=== PATIENT | female | born 1950 | race Caucasian/White ===

== ENCOUNTER → 2018-05-16 11:05 | Outpatient (CLI) | payer OTHER, SELFPAY ==
--- NOTE | 2018-05-16 | DI.RAD.S_ITS ---
PROCEDURE: XR CHEST 2V INDICATIONS: BRONCHITIS TECHNIQUE: 2 views of the chest were acquired. COMPARISON: None. FINDINGS: Surgical changes and devices: None. Lungs and pleura: No pleural effusions or pneumothorax. Lungs are clear. Mediastinum: Mediastinal contours are normal. Heart size is normal. Bones and chest wall: There are multiple sclerotic foci identified within the proximal shaft of the right humerus. No priors are available for comparison. Soft tissues appear unremarkable. IMPRESSION: 1. No acute pulmonary process. 2. Multiple sclerotic foci within the right humeral shaft, incompletely visualized. Recommend humeral x-ray for further evaluation. Dictated by: Ashley Noriega M.D. on 05/16/2018 at 11:58 Approved by: Ashley Noriega M.D. on 05/16/2018 at 12:00
== END ==
PROVIDERS: Visit Provider Student in an Organized Health Care Education/Training Program
DX: J20.9 Acute bronchitis, unspecified (principal)
CPT/HCPCS: 71046

== ENCOUNTER → 2018-10-10 10:54 | Outpatient (CLI) | payer OTHER, SELFPAY ==
--- NOTE | 2018-10-10 | DI.RAD.S_ITS ---
PROCEDURE: XR ANKLE LT MIN 3V INDICATIONS: pain in left ankle TECHNIQUE: 3 views of the ankle were acquired. COMPARISON: None. FINDINGS: Bones: No fractures or dislocations. Ankle mortise is normally aligned. No suspicious bony lesions. Plantar fascia insertion spurring. 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 Soft tissues: No tibiotalar joint effusion. Achilles tendon appears normal. IMPRESSION: No acute trauma found. Source of ankle pain not identified. Osteoarthritic change as discussed center of the navicular bone partially visualized. Dictated by: Abrahan Rios M.D. on 10/10/2018 at 11:42 Approved by: Abrahan Rios M.D. on 10/10/2018 at 11:43
== END ==
PROVIDERS: Visit Provider Student in an Organized Health Care Education/Training Program
DX: M25.572 Pain in left ankle and joints of left foot (principal); M19.072 Primary osteoarthritis, left ankle and foot; G89.29 Other chronic pain
CPT/HCPCS: 73610

== ENCOUNTER → 2019-02-17 16:09 | Outpatient (CLI) | payer OTHER, SELFPAY ==
--- NOTE | 2019-02-17 | DI.MG.S_ITS ---
BILATERAL DIGITAL SCREENING MAMMOGRAM 3D/2D WITH CAD: 02/17/2019 CLINICAL: Routine screening. Family history of breast cancer. Comparison is made to exams dated: 06/05/2013 mammogram, 05/25/2015 mammogram, and 08/05/2017 mammogram - [facility]. The tissue of both breasts is heterogeneously dense. This may lower the sensitivity of mammography. Current study was also evaluated with a Computer Aided Detection (CAD) system. There is an asymmetry in the left breast posterior depth lateral region seen on the craniocaudal view only. No other significant masses, calcifications, or other findings are seen in either breast. IMPRESSION: INCOMPLETE: NEEDS ADDITIONAL IMAGING EVALUATION The asymmetry in the left breast is indeterminate. Additional views with possible ultrasound are recommended. This exam was interpreted at Station ID: [id number]. NOTE: For mammograms, a report in lay terms will be sent to the patient. Approximately 15% of breast malignancies will not be visualized mammographically. In the management of a palpable breast mass, a negative mammogram must not discourage biopsy of a clinically suspicious lesion. Electronically Signed By: Mony stoner/sintia:02/17/2019 16:53:45 letter sent: Additional Imaging Needed ACR BI-RADS Category 0: Incomplete [id number]
== END ==
PROVIDERS: Visit Provider Student in an Organized Health Care Education/Training Program
DX: Z12.31 Encounter for screening mammogram for malignant neoplasm of breast (principal); Z80.3 Family history of malignant neoplasm of breast
CPT/HCPCS: 77063; 77067

== ENCOUNTER → 2019-03-11 14:01 | Outpatient (CLI) | payer OTHER, SELFPAY ==
--- NOTE | 2019-03-11 | DI.MG.S_ITS ---
UNILATERAL LEFT DIGITAL DIAGNOSTIC MAMMOGRAM 3D/2D WITH ADDITIONAL VIEWS: 03/11/2019 CLINICAL: Additional evaluation requested from prior study. Comparison is made to exams dated: 02/17/2019 mammogram - [facility], 08/05/2017 mammogram, and 05/25/2015 mammogram - [facility]. The tissue of left breast is heterogeneously dense. This may lower the sensitivity of mammography. The previously described asymmetry in the posterior lateral left breast appears to correlate with a 0.4 cm oval equal density focal asymmetry in the left breast at 5 o'clock posterior depth. There is suggestion of a central fatty hilum. No other significant masses or calcifications are seen in the breast. IMPRESSION: INCOMPLETE: NEEDS ADDITIONAL IMAGING EVALUATION The 0.4 cm oval equal density focal asymmetry in the left breast resembles a lymph node but remains indeterminate. Further evaluation by sonogram is recommended which is scheduled to immediately follow this examination. This exam was interpreted at Station ID: [id number]. NOTE: For mammograms, a report in lay terms will be sent to the patient. Approximately 15% of breast malignancies will not be visualized mammographically. In the management of a palpable breast mass, a negative mammogram must not discourage biopsy of a clinically suspicious lesion. Electronically Signed By: Arsh Jovel M.D. aty/:03/11/2019 14:36:33 ACR BI-RADS Category 0: Incomplete [id number]
--- NOTE | 2019-03-11 | DI.US.S_ITS ---
ULTRASOUND OF LEFT BREAST AND AXILLA: 03/11/2019 CLINICAL: Patient returns today to evaluate a density in the left breast. Comparison is made to exams dated: 03/11/2019 mammogram, 02/17/2019 mammogram - [facility], 08/05/2017 mammogram, 05/25/2015 mammogram, and 06/05/2013 mammogram - [facility]. Color flow and real-time ultrasound of the left breast axilla were performed. Meade scale images of the real-time examination were reviewed. There is a 0.3 cm x 0.2 cm x 0.4 cm oval mass in the left breast at 4 o'clock middle depth 5 cm from the nipple. This oval mass is hypoechoic with possible fatty hilum and no posterior acoustic shadowing or enhancement. This likely correlates with mammography findings. Color flow imaging demonstrates that there is no vascularity present. No significant abnormalities were seen sonographically in the left axilla. IMPRESSION: PROBABLY BENIGN The 0.3 cm x 0.2 cm x 0.4 cm oval mass in the left breast has a differential diagnosis of a complicated cyst or a lymph node and is probably benign. A follow-up left mammogram and a left breast ultrasound in 6 months is recommended to demonstrate stability. This exam was interpreted at Station ID: [id number]. Electronically Signed By: Arsh Jovel M.D. at/:03/11/2019 15:21:33 letter sent: Followup Recommended Ultrasound BI-RADS: 3 Probably benign
== END ==
PROVIDERS: Family Provider Student in an Organized Health Care Education/Training Program; PCP Student in an Organized Health Care Education/Training Program; Visit Provider Student in an Organized Health Care Education/Training Program
DX: R92.8 Other abnormal and inconclusive findings on diagnostic imaging of breast (principal); N63.23 Unspecified lump in the left breast, lower outer quadrant
CPT/HCPCS: 76642; 77065; G0279

== ENCOUNTER → 2019-10-15 08:00 | Outpatient (CLI) | payer OTHER, SELFPAY ==
--- NOTE | 2019-10-15 08:02 | DI.US.S_ITS ---
LIMITED ULTRASOUND OF LEFT BREAST AND AXILLA: 10/15/2019 CLINICAL: 6 month follow-up of cysts. Comparison is made to exams dated: 10/15/2019 mammogram, 03/11/2019 ultrasound, 03/11/2019 mammogram, 02/17/2019 mammogram - [facility], 08/05/2017 mammogram, and 05/25/2015 mammogram - [facility]. Color flow and real-time ultrasound of the left breast 3-4 o'clock, and axilla regions were performed on the areas of interest. There is a 0.4 cm x 0.3 cm x 0.4 cm oval mass with an indistinct and circumscribed margin in the left breast at 3 o'clock middle depth. This oval mass is hypoechoic. This abnormality is slightly increased in size and correlates with mammography findings. There is suggestion of a mildly dilated adjacent duct. Color flow imaging demonstrates that there is no vascularity present. IMPRESSION: SUSPICIOUS OF MALIGNANCY The 0.4 cm x 0.3 cm x 0.4 cm oval mass in the left breast is suspicious of malignancy. An ultrasound guided biopsy is recommended. The findings were discussed with the patient at the conclusion of the study by Dr. Lee. This exam was interpreted at Station ID: [id number]. Electronically Signed By: Eugene valdez/:10/15/2019 09:45:30 letter sent: Biopsy Required Ultrasound BI-RADS: 4 Suspicious for malignancy
--- NOTE | 2019-10-15 08:02 | DI.MG.S_ITS ---
UNILATERAL LEFT DIGITAL DIAGNOSTIC MAMMOGRAM 3D/2D SHORT-TERM FOLLOW-UP: 10/15/2019 CLINICAL: Short follow up. Comparison is made to exams dated: 03/11/2019 mammogram, 02/17/2019 mammogram - [facility], 08/05/2017 mammogram, and 05/25/2015 mammogram - [facility]. The tissue of left breast is heterogeneously dense. This may lower the sensitivity of mammography. There is an oval equal density mass with a circumscribed margin in the left breast at 4 o'clock posterior depth. This is not significantly changed. No other significant masses or calcifications are seen in the breast. IMPRESSION: INCOMPLETE: NEEDS ADDITIONAL IMAGING EVALUATION The oval equal density mass in the left breast is indeterminate. An ultrasound is recommended. This exam was interpreted at Station ID: [id number]. NOTE: For mammograms, a report in lay terms will be sent to the patient. Approximately 15% of breast malignancies will not be visualized mammographically. In the management of a palpable breast mass, a negative mammogram must not discourage biopsy of a clinically suspicious lesion. Electronically Signed By: Eugene valdez/sintia:10/15/2019 08:39:04 ACR BI-RADS Category 0: Incomplete 3340F
== END ==
PROVIDERS: Family Provider Student in an Organized Health Care Education/Training Program; PCP Nurse Practitioner; Referring Provider Nurse Practitioner; Visit Provider Nurse Practitioner
DX: R92.8 Other abnormal and inconclusive findings on diagnostic imaging of breast (principal); N63.23 Unspecified lump in the left breast, lower outer quadrant
CPT/HCPCS: 76642; 77065; G0279

== ENCOUNTER → 2019-10-28 13:56 | Outpatient (CLI) | payer OTHER, SELFPAY ==
--- NOTE | 2019-10-28 | DI.MG.S_ITS ---
UNILATERAL LEFT DIGITAL DIAGNOSTIC MAMMOGRAM POST-NEEDLE BIOPSY: 10/28/2019 CLINICAL: Post left breast ultrasound biopsy clip placement imaging. Comparison is made to exams dated: 10/15/2019 ultrasound, 10/15/2019 mammogram, and 03/11/2019 [facility]. The tissue of left breast is heterogeneously dense. This may lower the sensitivity of mammography. There is a marker clip in the appropriate position in the left breast at 3 o'clock middle depth. This marker clip placement is at the biopsy site. IMPRESSION: POST PROCEDURE MAMMOGRAM FOR MARKER PLACEMENT There was a successful marker clip placement in the left breast middle depth. This exam was interpreted at Station ID: [id number]. NOTE: For mammograms, a report in lay terms will be sent to the patient. Approximately 15% of breast malignancies will not be visualized mammographically. In the management of a palpable breast mass, a negative mammogram must not discourage biopsy of a clinically suspicious lesion. Electronically Signed By: Ramiro eli/:10/28/2019 16:12:20 ACR BI-RADS Category Post-procedure mammogram for marker placement
--- NOTE | 2019-10-28 | PATH_ITS ---
[facility] Accession Number: [id number] . 01 Material submitted: . breast - LEFT BREAST MASS 300 5CMFN . 01 Clinical history: . BRUNA . 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 Negative for atypia, carcinoma in situ, and malignancy. MRV 10/30/2019 1925 Local . 01 Comment: Clinical and radiographic correlation is necesary. . 01 Electronically signed: . Lorraine Beckett MD, Pathologist NPI- [id number] . 01 Gross description: . Received in formalin and labeled with LT breast are six pieces of dominguez adipose tissue measuring 1.1 x 0.3 x 0.3 to 0.6 x 0.5 x 0.3 cm. The tissue is entirely submitted in cassettes A1 and A2, with three pieces per cassette. Fixation time on bottle is listed at 3:00. The fixation duration should be approximately 19 hours. (BJ:[id number]) /MRV 10/29/2019 0950 Local . 01 Microscopic: . CK5/6 and estrogen receptor are performed on block A1 in order to evaluate areas of proliferation, with appropriately staining external controls. The areas of proliferation demonstrate mosaic pattern of immunoreactivity for estrogen receptor and no loss of CK5/6, in support of the diagnosis. Deeper H/E levels are examined. . * This test was developed and its performance characteristics determined by [facility]. It has not been cleared or approved by the U.S. Food and Drug Administration. The FDA has determined that such clearance or approval is not necessary. This test is used for clinical purposes. It should not be regarded as investigational or for research. . 01 Pathologist provided ICD-10: D24.2 . 01 CPT . O79298, O15422, 593142 Performed at: 01 [facility] [address], [place], [place] [id number] MD Eugene Joe MD Phone: [phone]
--- NOTE | 2019-10-28 13:58 | DI.US.S_ITS ---
PROCEDURE: US BX BREAST PERC W VAC DEVICE COMPARISON: None. INDICATIONS: ABNORMAL BREAST ULTRASOUND, LEFT BREAST MASS FINDINGS: IMPRESSION: Dictated by: Ramiro Lee M.D. on 10/28/2019 at 16:27 Approved by: Ramiro Lee M.D. on 10/28/2019 at 16:29
== END ==
PROVIDERS: Family Provider Student in an Organized Health Care Education/Training Program; PCP Nurse Practitioner; Referring Provider Nurse Practitioner; Visit Provider Nurse Practitioner
DX: D24.2 Benign neoplasm of left breast (principal); N64.4 Mastodynia; N63.20 Unspecified lump in the left breast, unspecified quadrant
CPT/HCPCS: 19083; 77065

== ENCOUNTER → 2019-11-03 11:22 | Outpatient (ROUT) | payer OTHER, SELFPAY ==
[2019-11-04 14:36] LABS: Fecal Immunochemical Test Negative (Negative)
== END ==
PROVIDERS: Family Provider Student in an Organized Health Care Education/Training Program; PCP Nurse Practitioner; Visit Provider Nurse Practitioner
DX: Z12.11 Encounter for screening for malignant neoplasm of colon (principal)
CPT/HCPCS: 82274

== ENCOUNTER 2020-04-30 08:12 | Observation (INO) | payer OTHER, SELFPAY ==
[2020-04-30] VITALS (24 sets, daily range): BP systolic 100–190; BP diastolic 40–79; PULSE 45–87; RESP 12–39; TEMP 35.9–36.6; O2SAT 90–100; BMI 29.3
--- NOTE | 2020-04-30 | PATH_ITS ---
[facility] Accession Number: [id number] . 01 Material submitted: . appendix - APPENDIX . 01 Clinical history: . HEADACHE/PAIN OVER BODY . 02 Diagnosis: Appendix, Appendectomy: Acute suppurative appendicitis with perforation and serositis. Negative for dysplasia and malignancy. V 05/04/2020 1521 Local . 02 Electronically signed: . Shirley Lombardo MD, Pathologist NPI- [id number] . 01 Gross description: . Received in formalin, labeled appendix consists a 3.6 cm in length by 1.0 cm in diameter vermiform appendix with attached dominguez-yellow lobulated mesoappendix measuring 4.5 x 1.8 x 1.0 cm. The serosa is dominguez-pink and smooth with adherent dominguez-white purulent exudate. Sectioning reveals a dominguez mucosa and a lumen measuring up to 0.9 cm in diameter. Director Hair sections are submitted to include the en face margin (blue), central cross-sections and bisected tips in cassettes A1-A2. (EA:[id number]) /V 05/03/2020 0956 Local . 02 Pathologist provided ICD-10: K35.20 . 02 CPT . 997057 Performed at: 01 [facility] [address], [place], [place] [id number] MD Eugene Joe MD Phone: [phone] Performed at: [address] [facility] [address] [place], [place] [id number] MD Shirley Lombardo MD Phone: [phone]
--- NOTE | 2020-04-30 08:30 | ED_ITS ---
HPI - Abdominal Pain General Chief Complaint: Abdominal Pain Stated Complaint: Headache/Pain over body Time Seen by Provider: 04/30/20 08:13 Source: patient and family Mode of arrival: Ambulatory Limitations: no limitations History of Present Illness HPI narrative: 69F nonsmoker with history of GERD presents with her and a chief complaint of gradually worsening lower abdominal pain that started last evening. She states initially she had a generalized abdominal discomfort Um with a bit of nausea and burning in her epigastrium and over the course of the evening developed worsening pain, had a few episodes of nonbloody diarrhea and now persistent right lower quadrant pain. She is nauseated and had a few episodes vomiting. She denies any dysuria, frequency or urgency. She has no upper respiratory complaints such as runny nose, sneezing, cough, sore throat or shortness of breath. She denies any exposure to persons known to be positive for COVID. She states she had symptoms like this once before, as a child when she was diagnosed with appendicitis and treated non operatively. She denies any obvious provocation or palliation of her pain, states it is 7/10 and sharp in nature. She denies any radiation of pain but states that it has migrated to her right lower quadrant as stated and is persistent. She has been NPO since 6:00 p.m. last night MD complaint: abdominal pain Onset (ago): hour(s) Pain Consistency: constant Location: RLQ Severity: severe Severity scale (1-10): 7 Quality: stabbing and aching Radiation: none Migration to: RLQ Relieving factors: nothing Exacerbating factors: nothing Associated symptoms: nausea, vomiting and diarrhea Related Data Home Medications Medication Instructions Recorded Confirmed diphenhydramine HCl 25 mg capsule 25 mg PO BEDTIME PRN 11/11/19 11/11/19 famotidine 20 mg tablet 20 mg PO DAILY PRN 11/11/19 11/11/19 Allergies Allergy/AdvReac Type Severity Reaction Status Date / Time No Known Drug Allergies Allergy Unverified 11/11/19 11:04 Review of Systems Constitutional Constitutional: Denies chills, Denies fatigue, Denies fever(s), Denies frequent falls, Denies lethargy and Denies weakness Eyes Eyes: Denies change in vision, Denies eye discharge, Denies irritation and Denies loss of vision ENT Ears, Nose, Mouth, and Throat: Denies change in voice, Denies dizziness, Denies neck pain, Denies sore throat and Denies throat swelling Cardiovascular Cardiovascular: Denies chest pain, Denies irregular heart rhythm, Denies lightheadedness, Denies palpitations, Denies dyspnea, Denies dyspnea on exertion and Denies orthopnea Respiratory Respiratory: Denies cough, Denies dyspnea, Denies dyspnea on exertion and Denies wheezing Gastrointestinal Gastrointestinal: Reports abdominal pain, Denies change in bowel habits, Denies diarrhea, Reports nausea and Reports vomiting Musculoskeletal Musculoskeletal: Denies neck pain and Denies numbness Integumentary/Breasts Skin/Breast: Denies pruritus, Denies erythema, Denies rash and Denies wounds Neurologic Neurologic: Denies behavioral changes, Denies confusion, Denies dizziness, Denies frequent falls, Denies loss of vision, Denies numbness and Denies weakness Psychiatric Psychiatric: Denies anxiety, Denies behavioral changes, Denies confusion, Denies depression, Denies homicidal ideation and Denies suicidal ideation Endocrine Endocrine: Denies fatigue, Denies flushing and Denies palpitations Hematologic/Lymphatic Hematologic/Lymphatic: Denies easy bruising Allergic/Immunologic Allergic/Immunologic: Denies urticaria, Denies throat swelling and Denies wheezing Patient History Medical History (Updated 04/30/20 @ 11:06 by Radhames Adan DO) Chronic cough GERD (gastroesophageal reflux disease) Hearing loss Surgical History History of breast biopsy History of ear surgery Family History Mother Heart disease Father Heart disease Social History marital status: household members: spouse occupational status: previously employed Smoking Status: Never smoker alcohol intake: current substance use type: does not use Smoking Status: Never smoker Exam Narrative Exam Narrative: GENERAL: [69] year old patient appears stated age. Well- nourished, well-developed patient, in mild distress. Obviously uncomfortable, climbing onto the cart appears to worsen her pain HEAD: Atraumatic. Normocephalic. EYES: Pupils equal round and reactive. Extraocular motions intact. No scleral icterus. No injection or drainage. ENT: Nose without bleeding, purulent drainage. Throat without erythema, tonsillar hypertrophy or exudate. Airway patent. NECK: Trachea midline. Non tender CARDIOVASCULAR: Regular rate and rhythm without murmurs, gallops, or rubs. RESPIRATORY: Clear to auscultation. Breath sounds equal bilaterally. No wheezes, rales, or rhonchi. GASTROINTESTINAL: Abdomen soft, severe tenderness in the right lower quadrant with rebound and voluntary guarding, nondistended. Exacerbation with heel tap, psoas, obturator. Positive Rovsing's EXTREMITIES: No edema or joint tenderness. BACK: Nontender without deformity or crepitance. No flank tenderness. NEURO: AOx3. SKIN: No rash or erythema of visible areas Initial Vital Signs Initial Vital Signs: Vital Signs Temperature 97.2 F L 04/30/20 08:15 Pulse Rate 58 L 04/30/20 08:15 Respiratory Rate 18 04/30/20 08:15 Blood Pressure 190/71 H 04/30/20 08:15 Pulse Oximetry 99 04/30/20 08:15 Course Orders Ordered: ED Orders 04/30/20 08:10 Urine Microscopic Stat 04/30/20 08:50 Complete Blood Count AUTO DIFF Stat Comprehensive Metabolic Panel Stat Lipase Stat 04/30/20 08:55 COVID19 Stat 04/30/20 09:25 CT abdomen pelvis w con Stat Sodium Chloride (Sodium Chloride 0.9% Flush) 10 ml IV PRN PRN PRN Reason: Flush Sodium Chloride (Sodium Chloride 0.9% Flush) 10 ml IV BID MUSHTAQ Discontinued Medications Piperacillin/Tazobactam/Dextrose (Zosyn) 3.375 gm in 50 mls @ 100 mls/hr IV NOW ONE Stop: 04/30/20 10:56 Last Admin: 04/30/20 10:55 Dose: 100 mls/hr Documented by: CAROLYN Pantoprazole Sodium (Pantoprazole 40 Mg Vial) 40 mg IV NOW ONE Stop: 04/30/20 08:24 Last Admin: 04/30/20 09:09 Dose: 40 mg Documented by: CAROLYN Consultations Consultation #1: Discussed with on-call General surgery. He request antibiotics and admission to the floor as there is currently an emergent surgical case in the OR Vital Signs Vital signs: Vital Signs - 8 hr 04/30/20 08:15 04/30/20 08:17 04/30/20 08:54 Temperature 97.2 F L Pulse Rate 58 L 52 L Respiratory Rate 18 Blood Pressure 190/71 H Pulse Oximetry 99 96 96 04/30/20 08:57 04/30/20 09:00 04/30/20 09:30 Temperature Pulse Rate 63 58 L 59 L Respiratory Rate 16 25 H Blood Pressure 173/70 H 158/70 H 161/67 H Pulse Oximetry 99 99 96 04/30/20 10:00 Temperature Pulse Rate 65 Respiratory Rate 26 H Blood Pressure Pulse Oximetry 100 MDM - Abdominal Pain Lab Data Result diagrams: 04/30/20 08:50 04/30/20 08:50 Labs: Lab Results 04/30/20 04/30/20 04/30/20 Range/Units 08:10 08:50 08:50 WBC 13.7 H (4.5-11.0) X10^3/uL RBC 4.34 (4.0-5.2) X10^6/uL Hgb 13.3 (12.0-16.0) g/dL Hct 41.0 (36-46) % MCV 94.4 (80-100) fL MCH 30.6 (26-34) PG MCHC 32.4 (30-36) % RDW 13.0 (11.6-14.8) % Plt Count 239 (150-400) X10^3/uL Neut % (Auto) 89.5 H (50-75) % Lymph % (Auto) 7.2 L (25-40) % [place] % (Auto) 3.1 (3-14) % Eos % (Auto) 0.0 L (2-4) % Baso % (Auto) 0.2 (0-2) % Neut # (Auto) 79307 H (2079-9957) /uL Lymph # (Auto) 1000 L (1386-0737) /uL [place] # (Auto) 400 (0-900) /uL Eos # (Auto) 0 (0-450) /uL Baso # (Auto) 0 (0-100) /uL Sodium 137 (137-145) mmol/L Potassium 3.7 (3.4-5.1) mmol/L Chloride 103 (98-107) mmol/L Carbon Dioxide 28 (22-32) mmol/L BUN 25 H (7-17) mg/dL Creatinine 0.56 (0.52-1.04) mg/dL Estimated GFR > 60.0 (>60) mL/min BUN/Creatinine Ratio 44.6 H (6-22) Glucose 143 H (80-110) mg/dL Calcium 9.1 (8.4-10.2) mg/dL Total Bilirubin 0.6 (0.2-1.3) mg/dL AST 22 (14-36) IU/L ALT 14 (<35) IU/L Alkaline Phosphatase 92 (38-126) U/L Total Protein 7.2 (6.3-8.2) g/dL Albumin 4.3 (3.5-5.0) g/dL Globulin 2.9 (1.7-4.1) g/dL Albumin/Globulin Ratio 1.5 (1.0-2.8) Lipase 48 (23-300) U/L Urine RBC 1-5/hpf (0-5/HPF) Urine WBC 1-5/hpf (0-5/HPF) Ur Squamous Epith Cells 5-10 /hpf H (0-5/HPF) Urine Bacteria Few (2-10) H (None) Urine Mucus 1+ H (Negative) Ur Culture Indicated? Culture not indicate Micro UA Comment SARS-CoV-2 (PCR) (Negative) 04/30/20 Range/Units 08:55 WBC (4.5-11.0) X10^3/uL RBC (4.0-5.2) X10^6/uL Hgb (12.0-16.0) g/dL Hct (36-46) % MCV (80-100) fL MCH (26-34) PG MCHC (30-36) % RDW (11.6-14.8) % Plt Count (150-400) X10^3/uL Neut % (Auto) (50-75) % Lymph % (Auto) (25-40) % [place] % (Auto) (3-14) % Eos % (Auto) (2-4) % Baso % (Auto) (0-2) % Neut # (Auto) (3995-7108) /uL Lymph # (Auto) (5506-8287) /uL [place] # (Auto) (0-900) /uL Eos # (Auto) (0-450) /uL Baso # (Auto) (0-100) /uL Sodium (137-145) mmol/L Potassium (3.4-5.1) mmol/L Chloride (98-107) mmol/L Carbon Dioxide (22-32) mmol/L BUN (7-17) mg/dL Creatinine (0.52-1.04) mg/dL Estimated GFR (>60) mL/min BUN/Creatinine Ratio (6-22) Glucose (80-110) mg/dL Calcium (8.4-10.2) mg/dL Total Bilirubin (0.2-1.3) mg/dL AST (14-36) IU/L ALT (<35) IU/L Alkaline Phosphatase (38-126) U/L Total Protein (6.3-8.2) g/dL Albumin (3.5-5.0) g/dL Globulin (1.7-4.1) g/dL Albumin/Globulin Ratio (1.0-2.8) Lipase (23-300) U/L Urine RBC (0-5/HPF) Urine WBC (0-5/HPF) Ur Squamous Epith Cells (0-5/HPF) Urine Bacteria (None) Urine Mucus (Negative) Ur Culture Indicated? Micro UA Comment SARS-CoV-2 (PCR) Negative (Negative) Point of care testing: Urine Dip Bedside Urine Glucose Negative Bedside Urine Bilirubin - Negative Bedside Urine Ketone +++ 80 Urine Specific [place] 1.010 Bedside Urine Occult Blood - Negative Bedside Urine pH 8.5 Bedside Urine Protein + 30 Bedside Urine Urobilinogen +/- 1mg Bedside Urine Nitrite - Negative Bedside Urine Leukocytes - Negative Esterase Imaging Data CT scan - abdomen/pelvis: Radiologist's Impression: Chart Viewer Diagnostics DATE TYPE STATUS REF RANGE/AUTHOR Hx Today 09:25 Aleksandar Ayon 10/28/19 13:58 Ramiro Lee 10/28/19 00:00 Ramiro Lee 10/15/19 08:02 Gabriela,Eugene 10/15/19 08:02 Eugene Ochoa 03/11/19 00:00 Arsh Jovel 03/11/19 00:00 Arsh Jovel 02/17/19 00:00 Mony Eddy 10/10/18 00:00 Abrahan Rios 05/16/18 00:00 Ashley Noriega Cynthia S 69, F0 1950 ADM [place], Main ED R10 158.75cm 73.936kg BMI: 29.3kg/m? Search Chart Preferred Name ONSET Today 10:30 Celia Camacho 69 F [address] [address]CV Scan ReportSigned Patient: Celia Camacho [facility]#: [id number]: 1950cct:[id number]/Sex: 69 / FDate of Service: 04/30/20Loc: EDAccession Number: [id number] Procedure: CT abdomen pelvis w con Ordering Provider: Radhames Adan D.O. PROCEDURE: CT ABDOMEN PELVIS W CON INDICATIONS: severe RLQ pain TECHNIQUE: After the administration of intravenous contrast, 5 mm thick sections acquired from the diaphragm to the symphysis. 5 mm coronal and sagittal reformats were acquired. For radiation dose reduction, the following was used: automated exposure control, adjustment of mA and/or kV according to patient size. COMPARISON: None. FINDINGS: Image quality: Excellent. ABDOMEN: Lung bases: Lung bases are clear. Heart size is normal. A small hiatal hernia is incidentally noted. Solid organs: Liver is normal in size and enhancement. A nonenhancing cyst is seen within the central liver that measures water density and 2.2 cm. Gallbladder wall is not thickened. Biliary system is non dilated. Pancreas enhances normally. There is an 8 mm water density cyst seen along the anterior body of the pancreas, as on series 2, image 23. The no abnormal enhancement can be seen. No pancreatic ductal dilatation can be seen. Spleen is normal in size and enhancement. No adrenal nodules. Kidneys d emonstrate normal size and enhancement, without hydronephrosis. Peritoneum and bowel: The appendix is abnormal, which demonstrates thickened, hyperenhancing elkins, with a maximum caliber of 17 mm. Moderate surrounding inflammatory changes are seen. No free air is seen to suggest perforation. No loculated abscess can be seen. Bowel loops demonstrate otherwise normal wall thickness and caliber. No significant free fluid. Minimal sigmoid diverticulosis is seen, without findings of active diverticulitis. Nodes and vessels: No retroperitoneal or mesenteric adenopathy by size criteria. Aorta and inferior vena cava are normal in size. Incidental note is made of a circumaortic left renal vein. Miscellaneous: No ventral hernias. PELVIS: Genitourinary: Bladder wall thickness is normal. The uterus appears normal for age. No adnexal masses are seen. Miscellaneous: No inguinal hernias or adenopathy. Bones: No suspicious bony lesions. No vertebral body compression fractures. Mild dextroconvex scoliotic curvature is seen. Age-appropriate bony degenerative bre nges are seen. IMPRESSION: Acute appendicitis. No findings of perforation or abscess can be seen. There is an 8 mm pancreatic cyst seen. A 6 month follow-up pancreas protocol CT or MRI is recommended for further evaluation (assuming that there is no contraindication). Incidental note is made of: Small hiatal hernia Simple liver cyst Circumaortic left renal vein Minimal sigmoid diverticulosis, without diverticulitis. Dictated by: Aleksandar Ayon M.D. on 04/30/2020 at 8:58 Approved by: Aleksandar Ayon M.D. on 04/30/2020 at 9:02 Discharge Plan Departure Patient Disposition: Admitted as Observation Clinical Impression: Acute appendicitis Qualifiers: Acute appendicitis type: with localized peritonitis Appendicitis gangrene presence: without gangrene Appendicitis perforation presence: without perforation Appendicitis abscess presence: without abscess Qualified Code(s): K35.30 - Acute appendicitis with localized peritonitis, without perforation or gangrene Admit Date/Time: 04/30/20 10:20 Admit Provider: Antonino Villatoro
[2020-04-30] MEDS: PANTOPRAZOLE 40 MG VIAL IV (09:09)
[2020-04-30 09:14] LABS: Add Manual Diff / Slide Review NO; Basophils Absolute Auto 0 /uL (0-100); Basophils Percent Auto 0.2 % (0-2); Eosinophils Absolute Auto 0 /uL (0-450); Hemoglobin 13.3 g/dL (12.0-16.0); Lymphocytes Absolute Auto 1000 /uL (1100-4500); Lymphocytes Percent Auto 7.2 % (25-40); Mean Corpuscular HGB Conc 32.4 % (30-36); Mean Corpuscular Hemoglobin 30.6 PG (26-34); Mean Corpuscular Volume 94.4 fL (80-100); Monocytes Absolute Auto 400 /uL (0-900); Monocytes Percent Auto 3.1 % (3-14); Neutrophils Absolute Auto 12200 /uL (1500-7000); Neutrophils Percent Auto 89.5 % (50-75); Platelet Count 239 X10^3/uL (150-400); Red Blood Cell Count 4.34 X10^6/uL (4.0-5.2); White Blood Cell Count 13.7 X10^3/uL (4.5-11.0)
[2020-04-30 09:21] LABS: COVID19 -Nasal RAPID Negative (Negative)
--- NOTE | 2020-04-30 09:25 | DI.CT.S_ITS ---
PROCEDURE: CT ABDOMEN PELVIS W CON INDICATIONS: severe RLQ pain TECHNIQUE: After the administration of intravenous contrast, 5 mm thick sections acquired from the diaphragm to the symphysis. 5 mm coronal and sagittal reformats were acquired. For radiation dose reduction, the following was used: automated exposure control, adjustment of mA and/or kV according to patient size. COMPARISON: None. FINDINGS: Image quality: Excellent. ABDOMEN: Lung bases: Lung bases are clear. Heart size is normal. A small hiatal hernia is incidentally noted. Solid organs: Liver is normal in size and enhancement. A nonenhancing cyst is seen within the central liver that measures water density and 2.2 cm. Gallbladder wall is not thickened. Biliary system is non dilated. Pancreas enhances normally. There is an 8 mm water density cyst seen along the anterior body of the pancreas, as on series 2, image 23. The no abnormal enhancement can be seen. No pancreatic ductal dilatation can be seen. Spleen is normal in size and enhancement. No adrenal nodules. Kidneys demonstrate normal size and enhancement, without hydronephrosis. Peritoneum and bowel: The appendix is abnormal, which demonstrates thickened, hyperenhancing elkins, with a maximum caliber of 17 mm. Moderate surrounding inflammatory changes are seen. No free air is seen to suggest perforation. No loculated abscess can be seen. Bowel loops demonstrate otherwise normal wall thickness and caliber. No significant free fluid. Minimal sigmoid diverticulosis is seen, without findings of active diverticulitis. Nodes and vessels: No retroperitoneal or mesenteric adenopathy by size criteria. Aorta and inferior vena cava are normal in size. Incidental note is made of a circumaortic left renal vein. Miscellaneous: No ventral hernias. PELVIS: Genitourinary: Bladder wall thickness is normal. The uterus appears normal for age. No adnexal masses are seen. Miscellaneous: No inguinal hernias or adenopathy. Bones: No suspicious bony lesions. No vertebral body compression fractures. Mild dextroconvex scoliotic curvature is seen. Age-appropriate bony degenerative changes are seen. IMPRESSION: Acute appendicitis. No findings of perforation or abscess can be seen. There is an 8 mm pancreatic cyst seen. A 6 month follow-up pancreas protocol CT or MRI is recommended for further evaluation (assuming that there is no contraindication). Incidental note is made of: Small hiatal hernia Simple liver cyst Circumaortic left renal vein Minimal sigmoid diverticulosis, without diverticulitis. Dictated by: Aleksandar Ayon M.D. on 04/30/2020 at 8:58 Approved by: Aleksandar Ayon M.D. on 04/30/2020 at 9:02
[2020-04-30 09:34] LABS: Alanine Aminotransferase 14 IU/L (<35); Albumin 4.3 g/dL (3.5-5.0); Albumin Globulin Ratio 1.5 (1.0-2.8); Alkaline Phosphatase 92 U/L (38-126); Aspartate Aminotransferase 22 IU/L (14-36); BUN Creatinine Ratio 44.6 (6-22); Bilirubin Total 0.6 mg/dL (0.2-1.3); Blood Urea Nitrogen 25 mg/dL (7-17); Calcium 9.1 mg/dL (8.4-10.2); Carbon Dioxide 28 mmol/L (22-32); Chloride 103 mmol/L (98-107); Estimated Glomerular Filt Rate > 60.0 mL/min (>60); Globulin 2.9 g/dL (1.7-4.1); Glucose 143 mg/dL (80-110); HEMOLYSIS < 15 (0-50); Lipase 48 U/L (23-300); Potassium 3.7 mmol/L (3.4-5.1); Sodium 137 mmol/L (137-145); Total Protein 7.2 g/dL (6.3-8.2)
[2020-04-30 09:52] LABS: Bacteria Urine Few (2-10); Mucus Urine 1+ (Negative); RBC Urine 1-5/HPF (0-5/HPF); Squamous Epithelial Cell Urine 5-10 /HPF (0-5/HPF); WBC Urine 1-5/HPF (0-5/HPF)
[2020-04-30] MEDS: PIPERACILLIN-TAZO 3.375 GM/50 ML FROZ.PIGGY IV (10:55)
--- NOTE | 2020-04-30 12:07 | P.HP_ITS ---
History of Present Illness History of Present Illness Date Patient Seen: 04/30/20 Time Patient Seen: 12:00 Chief complaint: Headache/Pain over body Narrative: The patient is a woman who developed pain yesterday evening. It began in a vague way and a right lower abdomen. It then became more diffuse in central now has settled back and right lower quadrant. She has not had this pain before. She is anorexic. She had a small amount of emesis. Pain increases with movement. Last p.o. intake was yesterday. Patient History Medical History Chronic cough GERD (gastroesophageal reflux disease) Hearing loss Surgical History History of breast biopsy History of ear surgery Family & Social History Family History Mother Heart disease Father Heart disease Social History: household members spouse Safety & Behavioral: Feels Safe in Current Yes Environment Been Physically Hurt or No Threatened By a Person Tobacco & Substance use: Smoking Status Never smoker alcohol intake current alcohol intake frequency a few times a week Substance Use Type does not use Meds Home Medications and Allergies Home Medications Medication Instructions Recorded Confirmed Type loratadine [Claritin] 10 mg PO DAILY 04/30/20 04/30/20 History Allergies Allergy/AdvReac Type Severity Reaction Status Date / Time No Known Drug Allergies Allergy Verified 04/30/20 11:35 Review of Systems Review of Systems Narrative: Patient wears glasses. Otherwise no eye symptoms. Denies pain or double vision. No earaches or sore throat. She does have decreased hearing is had surgery on her ears in the distant past. She has allergies and takes an [id number] her and histamine. No sore throat or trouble swallowing. No tooth aches. No asthma or cough or cold. No history of heart problems murmurs or chest pain. No black or bloody bowel movements. Last colonoscopy was about 20 years ago. She says she does Hemoccult tests as her test of choice. No seizures or blackouts. No anxiety or depression. No unusual bruising or bleeding. Exam Vital Signs (past 8 hours): - 04/30/20 08:15 04/30/20 08:17 04/30/20 08:54 Temperature 97.2 F L Pulse Rate 58 L 52 L Respiratory Rate 18 Blood Pressure 190/71 H Pulse Oximetry 99 96 96 04/30/20 08:57 04/30/20 09:00 04/30/20 09:30 Temperature Pulse Rate 63 58 L 59 L Respiratory Rate 16 25 H Blood Pressure 173/70 H 158/70 H 161/67 H Pulse Oximetry 99 99 96 04/30/20 10:00 04/30/20 10:30 04/30/20 10:58 Temperature Pulse Rate 65 61 65 Respiratory Rate 26 H 27 H 26 H Blood Pressure 170/79 H Pulse Oximetry 100 100 99 04/30/20 11:00 04/30/20 11:30 Temperature Pulse Rate 63 59 L Respiratory Rate 31 H 39 H Blood Pressure 155/78 H 153/69 H Pulse Oximetry 99 98 Oxygen Delivery Method Room Air Narrative Exam Narrative: No apparent distress. Eyes nonicteric. Pupils equal round reactive to light. Conjunctiva pink. Ears without lesion. Nasal septum midline without polyps. Oral mucosa pink little dry. No open lesions. No splits her lips. Neck is supple. There are no nodes in the neck or supraclavicular areas. Trachea is midline mobile. Thyroid is not enlarged. Lungs are clear to auscultation without rales or rhonchi. Heart regular rate and rhythm without murmur gallop. Lungs percuss equally bilaterally. No bruit in the neck. Abdomen is flat soft without guarding. There is localized tenderness in the right lower quadrant. No ventral hernias appreciated. Skin texture and turgor is 2+. No open lesions seen. The patient shaves her legs. She has 2+ dorsalis pedis pulses. No tibialis posterior on the left a 2+ on the right. Patient is alert and oriented x3. Speech rate and content are appro priate. Affect is appropriate. Objective Labs Result Diagrams: 04/30/20 08:50 04/30/20 08:50 Labs: Laboratory Results - last 24 hr 04/30/20 04/30/20 04/30/20 08:10 08:50 08:50 WBC 13.7 H RBC 4.34 Hgb 13.3 Hct 41.0 MCV 94.4 MCH 30.6 MCHC 32.4 RDW 13.0 Plt Count 239 Neut % (Auto) 89.5 H Lymph % (Auto) 7.2 L [place] % (Auto) 3.1 Eos % (Auto) 0.0 L Baso % (Auto) 0.2 Neut # (Auto) 38986 H Lymph # (Auto) 1000 L [place] # (Auto) 400 Eos # (Auto) 0 Baso # (Auto) 0 Sodium 137 Potassium 3.7 Chloride 103 Carbon Dioxide 28 BUN 25 H Creatinine 0.56 Estimated GFR > 60.0 BUN/Creatinine Ratio 44.6 H Glucose 143 H Calcium 9.1 Total Bilirubin 0.6 AST 22 ALT 14 Alkaline Phosphatase 92 Total Protein 7.2 Albumin 4.3 Globulin 2.9 Albumin/Globulin Ratio 1.5 Lipase 48 Urine RBC 1-5/hpf Urine WBC 1-5/hpf Ur Squamous Epith Cells 5-10 /hpf H Urine Bacteria Few (2-10) H Urine Mucus 1+ H Ur Culture Indicated? Culture not indicate Micro UA Comment SARS-CoV-2 (PCR) 04/30/20 08:55 WBC RBC Hgb Hct MCV MCH MCHC RDW Plt Count Neut % (Auto) Lymph % (Auto) [place] % (Auto) Eos % (Auto) Baso % (Auto) Neut # (Auto) Lymph # (Auto) [place] # (Auto) Eos # (Auto) Baso # (Auto) Sodium Potassium Chloride Carbon Dioxide BUN Creatinine Estimated GFR BUN/Creatinine Ratio Glucose Calcium Total Bilirubin AST ALT Alkaline Phosphatase Total Protein Albumin Globulin Albumin/Globulin Ratio Lipase Urine RBC Urine WBC Ur Squamous Epith Cells Urine Bacteria Urine Mucus Ur Culture Indicated? Micro UA Comment SARS-CoV-2 (PCR) Negative Assessment & Plan Assessment & Plan narrative: Patient is a fairly healthy woman who has seasonal allergies with classic history and physical exam and CT scanning for acute appendicitis. Appendix is quite inflamed appearing in CT scan. I have disc ussed laparoscopic cholecystectomy, possible open procedure or alternative procedures with her. Risks of bleeding infection and hernia were discussed as well as the potential to injure internal organs which would require an operation to repair. All questions were answered. She appeared to understand and wishes to proceed.
[2020-04-30] MEDS: LACTATED RINGERS 1,000 ML 250 ML IV (12:15)
--- NOTE | 2020-04-30 12:59 | PC.ADMIT ---
[facility] Admission Note: The patient,Celia Camacho,69 y/o, was given written information regarding hospital policies, unit procedures and contact persons. Patient's smoking status: Never smoker. Vital Signs - 8 hr 04/30/20 08:15 04/30/20 08:17 04/30/20 08:54 Temperature 97.2 F L Pulse Rate 58 L 52 L Respiratory Rate 18 Blood Pressure 190/71 H Pulse Oximetry 99 96 96 04/30/20 08:57 04/30/20 09:00 04/30/20 09:30 Temperature Pulse Rate 63 58 L 59 L Respiratory Rate 16 25 H Blood Pressure 173/70 H 158/70 H 161/67 H Pulse Oximetry 99 99 96 04/30/20 10:00 04/30/20 10:30 04/30/20 10:58 Temperature Pulse Rate 65 61 65 Respiratory Rate 26 H 27 H 26 H Blood Pressure 170/79 H Pulse Oximetry 100 100 99 04/30/20 11:00 04/30/20 11:30 Temperature Pulse Rate 63 87 Respiratory Rate 31 H 18 Blood Pressure 155/78 H 153/69 H Pulse Oximetry 99 99 Patient arrived to 212 at 1245. obtained wt, and patient sba up to br to void, as soon as back to bed, OR staff arrived to take patient for surgery. Patient's spouse took all of her belongings with him. He left to get lunch, and will come back shortly.
[2020-04-30] MEDS: CEFOTETAN 2 GM/50 ML PIGGYBACK IV (13:15)
[2020-04-30] MEDS: metroNIDAZOLE 500 MG/100 ML PIGGYBACK 100 MG IV (13:22)
--- NOTE | 2020-04-30 13:51 | SUR.OPER ---
Supine on padded OR bed, head on pillow, arm padded and tucked at side, legs uncrossed, safety belt at thigh, tape over blanket over lower legs .
[2020-04-30] MEDS: BUPIVACAINE 0.5% (PF) VIAL 30 ML INJ (13:58)
--- NOTE | 2020-04-30 14:48 | PM.OP.1 ---
Operative Date/Time/Diagnoses Date of procedure: 04/30/20 Time of procedure: 14:48 Pre-op diagnosis: Acute appendicitis Post-op diagnosis: same Procedure & Clinicians Procedure: Laparoscopic appendectomy. Incidental repair of an umbilical hernia.(no incarceration or strangulation) Same procedure as scheduled: Yes Indications: History, Right lower quadrant pain and tenderness with an abnormal CT and labs consistent with acute appendicitis Surgeon: Antonino Yuan Yes if Unassisted: Yes Anesthesia Type: General Operative Notes Findings: Acute appendicitis. Very small hernia defect at the umbilicus. Closure Type: primary Specimen(s): other (Appendix) Prosthetic devices, grafts, tissues, transplants, or devices: None Estimated Blood Loss (mL): 5 Blood products transfused: none Procedure in detail: Patient is placed supine on the operating room table and underwent general endotracheal anesthesia. A Stephens was placed and She was prepped and draped in the usual fashion. Local anesthetic was infiltrated beneath the umbilicus and a curvilinear incision made. Was carried down to the fascia. The patient had fat protruding from the area that looked typical of a hernia fat. I dissected it out and transected it at the base and identified I a hernia defect. I opened the fascia through this hernia defect and placed sutures of 0 Ethibond in the fascia as stay sutures. The perineum was entered under direct vision. And a 12 mm port was inserted. Two additional ports were placed 1 between the umbilicus and pubis and the 2nd in left lower quadrant. The cecum was identified and the appendix readily visualized. It was quite inflamed proximally but the base appeared to be adequate. I divided the mesoappendix using cautery and scissors. The base was cleared and a loop of 0 PDS was placed at the base and cinched down. A clamp was placed across the appendix further down in the appendix is transected. Was immediately placed in a bag without spillage. It was removed. The base of the appendix mucosa was cauterized. I paid placed a loop on the visible pulsating appendiceal artery stump. The abdomen was irrigated as was the pelvis and suctioned free of fluid. Meticulous hemostasis had been achieved. Ports were all removed. An additional 0 Ethibond was placed in the fascia at the umbilicus. The wounds were irrigated. Foot 4 0 Vicryl subcuticular stitches were used to close the skin. There was no apparent complication. The patient was awakened and taken to recovery area in good condition. Complications: none Post-operative Condition: stable Disposition: PACU
[2020-04-30] MEDS: KETOROLAC 30 MG/ML VIAL IV ×2 (16:04→21:59)
[2020-04-30] MEDS: LACTATED RINGERS 1,000 ML 125 ML IV (16:04)
--- NOTE | 2020-04-30 16:23 | PC.NURSE ---
Addendum entered by Raquel Magana R.N. 04/30/20 23:18: Toradol iv for incisional pain 2/10 associated with movement. Denies any other concerns or complaints. Has been out of bed to bathroom to toilet with DIE REPAIR several times this shift. Addendum entered by Raquel Magana R.N. 04/30/20 19:09: Pt taking general diet. Denies pain to incisional sites. States prefers to avoid narcotics if possible. Ice to abdomen prn. Original Note: Pt to room 212 from PACU awake and alert. Pt's spouse, Palomo, is present in pt's room. Pt c/o incisional pain to abdomen 7/10. Reluctant to accept narcotics @ this time. Administered iv toradol to pt with action of this drug provided to pt. Pt denies nausea. Bowel tones are quiet and abdomen is puffy. Three large bandaid dressings dry and intact to abdomen. BL calf scd's in place.
[2020-04-30] MEDS: GABAPENTIN 300 MG CAPSULE PO (21:58)
[2020-05-01] VITALS: BP 110/60; PULSE 55; RESP 16; TEMP 36.1; O2SAT 97
[2020-05-01] MEDS: LACTATED RINGERS 1,000 ML 125 ML IV (00:17)
[2020-05-01 05:15] VITALS: BP 104/62; PULSE 69; RESP 16; TEMP 36.2; O2SAT 96
[2020-05-01 08:53] VITALS: BP 112/70; PULSE 69; RESP 16; TEMP 36.8; O2SAT 93
[2020-05-01] MEDS: GABAPENTIN 300 MG CAPSULE PO (08:54)
[2020-05-01 11:39] VITALS: BP 112/56; PULSE 62; RESP 16; TEMP 36.9; O2SAT 96
--- NOTE | 2020-05-01 12:48 | CM.DANOTE ---
DCP/Assessment: Reviewed chart. Patient is a 69yr old female admitted to [facility] with abdominal pain. PCP is Lindsay Edmondson. Primary payor is 1)[facility]. Met with patient and spouse/Shaun at bedside explained CM/SW role. Patient underwent lap appy on 04-30-20. It is anticipated that patient will d/c home today. Patient reports that she is completely I in all ADL's. Patient and spouse do no anticipate any d/c planning needs. P: Home when medically stable. OCTAVIO Zheng Discharge Planning/Care Management CM Discharge Assessment Start: 05/01/20 12:43 Freq: Status: Active Protocol: Document 05/01/20 12:43 KJS (Rec: 05/01/20 12:48 KJS [id number]) Discharge Planning Assessment Assigned Vocal Artist OCTAVIO Zheng Contact Information Shaun Camacho (spouse) [phone] Advance Directives? No History Provided By Patient,Significant Other, Medical Record Prior Living Arrangements House Household Members spouse Type of transporation used prior to Drives own vehicle admit Independent with ADL's Yes Is patient alert and oriented? Yes Caregiver for Another No Barriers to Discharge No Discharge Plan Home Transportation Arrangement Spouse to provide transport. Referrals Initiated None needed Whiteboard Updated in Patient Room with Yes name and ext. # of Vocal Artist Review Status In Process Next Review Type Continued Stay Review
--- NOTE | 2020-05-01 13:12 | PM.DS.1 ---
History of Present Illness History of Present Illness Chief complaint: Headache/Pain over body Narrative: The patient is a woman who developed pain yesterday evening. It began in a vague way and a right lower abdomen. It then became more diffuse in central now has settled back and right lower quadrant. She has not had this pain before. She is anorexic. She had a small amount of emesis. Pain increases with movement. Last p.o. intake was yesterday. Discharge Providers Provider Date of admission: 04/30/20 10:20 Discharge Date: 05/01/20 Primary care physician: ANGIE Prince Consults: 04/30/20 15:51 Consult to Discharge Planning Routine Comment: Discharge provider: Antonino Villatoro MD Summary Hospital Course Discharge Diagnosis: Acute appendicitis Umbilical hernia chronic reducible without evidence of incarceration or strangulation. Hospital Course: Patient was taken the operating room where she underwent an uneventful laparoscopic appendectomy. She had an incidentally found umbilical hernia that was repaired at the time of her operation. Postoperative course was quite smooth. She was discharged to follow up in the office. Status at Discharge Cognitive/behavioral status at discharge: at baseline, oriented Functional status at discharge: independent ambulation Overall status at discharge: patient is progressing back to baseline Time Spent with Patient Time spent: Less than 30 minutes Exam Vital Signs (past 8 hours): - 05/01/20 05:15 05/01/20 08:53 05/01/20 11:39 Temperature 97.2 F L 98.2 F 98.4 F Pulse Rate 69 69 62 Respiratory Rate 16 16 16 Blood Pressure 104/62 112/70 112/56 L Pulse Oximetry 96 93 96 Oxygen Delivery Method Room Air Oxygen Flow Rate 0 Objective Labs Result Diagrams: 04/30/20 08:50 04/30/20 08:50 [facility] Medical History Chronic cough GERD (gastroesophageal reflux disease) Hearing loss Surgical History History of breast biopsy History of ear surgery Family History Mother Heart disease Father Heart disease Social History marital status: household members: spouse occupational status: previously employed Smoking Status: Never smoker alcohol intake: current substance use type: does not use Discharge Plan Discharge Plan Patient Disposition: Home Provider Discharge Comment: Your operation went fine. There were no apparent complications. Discharge orders & Medications Prescriptions: New hydrocodone-acetaminophen [Easley] 5-325 mg tablet See Rx Instructions .ROUTE .COMPLEX PRN (Reason: pain) Qty: 14 RF: 0 Continued loratadine [Claritin] 10 mg Tablet 10 mg PO DAILY RF: 0 Follow up/Referrals: Lindsay Edmondson ARNP [Primary Care Provider] - Antonino Villatoro MD [Physician] - 2 Weeks (Please call my office and make an appointment to see me in about 1-2 weeks. If you need to reach a doctor please call our office. If the office is closed listen to the entire message in you will be instructed how to page the doctor on-call for our practice. Have a pen and paper ready.) Diet/Activity/Treatments Diet: Diet as Tolerated Activity: Do not operate machinery or drive today. Do not sign important documents today. Do not drive until you are pain-free off medication. You may walk. No lifting over 10 lb for the next 4 weeks. Do not strain for the next 4 weeks. No other exercise is recommended except walking for the next 4 weeks. No pool or tub for least 2 weeks. Skin/Wound/Dressing Care Report to your healthcare provider any signs of infection, such as:: chills, fever, night sweats, increased pain, unusual drainage and unusual redness Dressing: You may remove the Band-Aids in 2 days and shower. Leave the tape under the Band-Aids which is directly over your incisions fall off on its own. Do not remove it unless it causes irritation of your skin. Visit Report/Discharge Packet Instructions: DI for an Appendectomy Discharge Data Primary Care Provider: Lindsay Edmondson Attending Provider: Antonino Villatoro
--- NOTE | 2020-05-01 13:57 | PC.NURSE ---
Discharge instructions and home care reviewed with patient. She states understanding and has no further questions or concerns at this time. IV dc'd intact. Bandaids in place to abdomen, CDI. Patient will call Dr. Villatoro's office tomorrow to confirm schedule for follow up in 1-2 weeks. Patient escorted out via wheelchair with all belongings to home with her .
== END 2020-05-01 14:06 | disposition home or self-care (01) ==
LOC: ED 08:23 → AC 10:28
PROVIDERS: Admitting Provider Specialist; Emergency Provider Emergency Medicine; Family Provider Student in an Organized Health Care Education/Training Program; PCP Nurse Practitioner; Referring Provider Emergency Medicine; Visit Provider Specialist
PROC: 0DTJ4ZZ Resection of Appendix, Percutaneous Endoscopic Approach (ICD-10-PCS; CPT 44970; principal; 2020-04-30 12:30)
DX: K35.80 Unspecified acute appendicitis (principal); K42.9 Umbilical hernia without obstruction or gangrene; K21.9 Gastro-esophageal reflux disease without esophagitis; Z20.822 Contact with and (suspected) exposure to COVID-19
CPT/HCPCS: 44970; 49585; 36415; 74177; 80053; 81003; 81015; 83690; 85025; 87635; 96361; 96365; 96375; 99219; 99284; G0378; C9113; J1885; J2543; J2704; J3010; Q9967

== ENCOUNTER → 2020-05-04 09:10 | Outpatient (CLI) | payer OTHER, SELFPAY ==
[2020-04-30 16:42] VITALS: BMI 29.3
--- NOTE | 2020-05-04 09:12 | DI.US.S_ITS ---
ULTRASOUND OF LEFT BREAST: 05/04/2020 CLINICAL: 6 month follow-up biopsy. Comparison is made to exams dated: 05/04/2020 mammogram, 10/28/2019 ultrasound biopsy, 10/28/2019 mammogram, 10/15/2019 ultrasound, 10/15/2019 mammogram, and 03/11/2019 [facility]. Color flow and Doppler ultrasound of the left breast were performed. Real-time ultrasonography of left breast was performed with computer guidance to assure complete coverage of the breast tissue and to provide a uniform data set. Images were transferred to a viewing station for 3-D rendering. Previously biopsied mass is no longer present. A biopsy marker is demonstrated in the area of the mass. No suspicious finding is demonstrated. IMPRESSION: BENIGN There is no sonographic evidence of malignancy. The previously biopsied mass in the left breast is no longer present. Return to annual mammogram screening schedule is recommended. This exam was interpreted at Station ID: [id number]. Electronically Signed By: Rogelio Bradley M.D. jr/:05/04/2020 10:55:43 copy to: ALBERTINA PARRISH letter sent: Normal Exam Ultrasound BI-RADS: 2 Benign
--- NOTE | 2020-05-04 09:12 | DI.MG.S_ITS ---
BILATERAL DIGITAL DIAGNOSTIC MAMMOGRAM 3D/2D SHORT-TERM FOLLOW-UP: 05/04/2020 CLINICAL: Short term follow up of the left breast, due for bilateral imaging. Post clip. Comparison is made to exams dated: 10/28/2019 mammogram, 10/15/2019 mammogram, 03/11/2019 mammogram, and 02/17/2019 mammogram - [facility]. The tissue of both breasts is heterogeneously dense. This may lower the sensitivity of mammography. No significant masses, calcifications, or other findings are seen in either breast. IMPRESSION: INCOMPLETE: NEEDS ADDITIONAL IMAGING EVALUATION No mammographic evidence of malignancy. An ultrasound is recommended to document stability of the findings seen only on prior ultrasound examinations, and is scheduled to immediately follow this examination. This exam was interpreted at Station ID: [id number]. NOTE: For mammograms, a report in lay terms will be sent to the patient. Approximately 15% of breast malignancies will not be visualized mammographically. In the management of a palpable breast mass, a negative mammogram must not discourage biopsy of a clinically suspicious lesion. Electronically Signed By: Rogelio Bradley M.D. jr/:05/04/2020 10:04:47 copy to: ALBERTINA PARRISH ACR BI-RADS Category 0: Incomplete [id number]
== END ==
PROVIDERS: Family Provider Student in an Organized Health Care Education/Training Program; PCP Nurse Practitioner; Referring Provider Specialist; Visit Provider Specialist
DX: R92.8 Other abnormal and inconclusive findings on diagnostic imaging of breast (principal); N63.20 Unspecified lump in the left breast, unspecified quadrant
CPT/HCPCS: 76642; 77066; G0279

== ENCOUNTER → 2020-08-23 10:56 | Outpatient (CLI) | payer OTHER, SELFPAY ==
[2020-04-30 16:42] VITALS: BMI 29.3
--- NOTE | 2020-08-23 10:57 | DI.RAD.S_ITS ---
PROCEDURE: XR LUMBAR SPINE 2-3V INDICATIONS: lower back pain TECHNIQUE: 2 views of the lumbar spine were acquired. COMPARISON: None. FINDINGS: Bones: 5 [id number] vertebrae are present. There is normal bony alignment. No vertebral body compression fractures. No suspicious bony lesions. There is only minimal degenerative disc height reduction. Facet osteoarthritis becomes progressively more prominent from L3 inferiorly, mild at L3-4, moderate at L4-5 and moderately severe at L5-S1. Soft tissues: Overlying bowel gas pattern is normal. No suspicious soft tissue calcifications. IMPRESSION: No compression fracture found, no significant degenerative disc disease. Progressively greater facet osteoarthritis symmetric bilaterally from L3 inferiorly as noted. Dictated by: Abrahan Rios M.D. on 08/23/2020 at 12:36 Approved by: Abrahan Rios M.D. on 08/23/2020 at 12:37
== END ==
PROVIDERS: Family Provider Student in an Organized Health Care Education/Training Program; PCP Nurse Practitioner; Referring Provider Registered Nurse; Visit Provider Registered Nurse
DX: M47.816 Spondylosis without myelopathy or radiculopathy, lumbar region (principal)
CPT/HCPCS: 72100

== ENCOUNTER → 2021-05-05 09:34 | Outpatient (CLI) | payer OTHER, SELFPAY ==
[2020-04-30 16:42] VITALS: BMI 29.3
[2021-05-05 11:08] LABS: COVID19 -Nasal RAPID Negative (Negative)
== END ==
PROVIDERS: Family Provider Student in an Organized Health Care Education/Training Program; PCP Nurse Practitioner; Visit Provider Surgery
DX: Z01.812 Encounter for preprocedural laboratory examination (principal); Z20.822 Contact with and (suspected) exposure to COVID-19
CPT/HCPCS: 87635; C9803

== ENCOUNTER 2021-05-08 12:41 | Day surgery (SDC) | payer OTHER, SELFPAY ==
[2020-04-30 16:42] VITALS: BMI 29.3
[2021-05-08] VITALS (8 sets, daily range): BP systolic 99–158; BP diastolic 52–73; PULSE 53–71; RESP 12–16; TEMP 36–37; O2SAT 93–100; BMI 29.7
--- NOTE | 2021-05-08 13:27 | PM.HP.1 ---
History of Present Illness History of Present Illness Date Patient Seen: 05/08/21 Time Patient Seen: 13:32 Chief complaint: SCREENING COLONOSCOPY Narrative: Screening colonoscopy, last scope was over 10 years ago. No family history of colon cancer. no symptoms. Patient History Medical History Acute appendicitis Chronic cough GERD (gastroesophageal reflux disease) Hearing loss Left breast mass Lower back pain Surgical History History of breast biopsy History of ear surgery Family & Social History Family History Mother Heart disease Father Heart disease Social History: household members spouse Tobacco & Substance use: Smoking Status Never smoker alcohol intake current alcohol intake frequency a few times a week Substance Use Type does not use Meds Home Medications and Allergies Home Medications Medication Instructions Recorded Confirmed Type Claritin 1 tab DAILY PRN 05/08/21 05/08/21 History Allergies Allergy/AdvReac Type Severity Reaction Status Date / Time No Known Drug Allergies Allergy Verified 05/08/21 13:08 Exam Vital Signs (past 8 hours): - 05/08/21 13:20 Temperature 97.5 F L Pulse Rate 71 Respiratory Rate 16 Blood Pressure 158/67 H Pulse Oximetry 98 Oxygen Delivery Method Room Air Const General: cooperative and healthy appearing HENWI Head: normal to inspection Eyes Sclera: sclerae normal Neck Neck: full ROM and trachea midline Chest Chest: normal inspection of the chest Resp Effort & Inspection: normal respiratory effort Auscultation: clear to auscultation bilaterally Cardio Rate: regular rate Rhythm: regular rhythm GI Palpation: soft Skin General: atrophy Neuro General: patient alert and patient awake Psych Appearance: grossly normal Judgment: judgment good Assessment & Plan Assessment & Plan narrative: Screening colonoscopy with moderate sedation for colon cancer screening COVID-19 COVID-19 status: Negative Time Spent With Patient Time with patient: less than 30 minutes Critical Care time: I spent a total of [] minutes of critical care time on this patient's care today; this time is exclusive of procedural time.
[2021-05-08] MEDS: LACTATED RINGERS 1,000 ML 42 ML IV (13:32)
[2021-05-08] MEDS: MIDAZOLAM 5 MG/5 ML VIAL IV (13:39)
--- NOTE | 2021-05-08 13:51 | PM.OP.ENDO ---
Operative Date/Time/Diagnoses Date of procedure: 05/08/21 Time of procedure: 13:53 Pre-op diagnosis: screening colonoscopy Post-op diagnosis: same Procedure & Clinicians Study performed: Colonoscopy Same procedure as scheduled: Yes Indications: Screening for colon cancer Surgeon: Terri Torrez Procedure Notes SCOAP/Timeout: Done Procedure in detail: Preop diagnosis: Colon cancer screening Postop diagnosis: Same Operative procedure: Colonoscopy with moderate sedation Surgeon: Anay Torrez MD Findings: No diverticulitis, no polyps Procedure: Patient placed in a supine position then turned lateral. Rectal exam is was performed showing normal tone no masses. Colonoscope inserted into rectum and advanced to ileocecal valve with minimal difficulty. Insufflation and extraction of scope including retroflex in the rectum had the above findings Impression: No polyps, no diverticuli. Plan: Repeat colonoscopy for screening purposes in 10 years. Unless otherwise indicated by change in family history or clinical condition Sedation minutes: 15 Specimen(s): none sent Complications: none Impression: No polyps, no diverticula Post-procedure Recommendations: Colonscopy in 10 years Follow up: as needed Disposition: PACU
[2021-05-08] MEDS: fentaNYL 250 MCG/5 ML INJ IV (13:52)
--- NOTE | 2021-05-08 16:05 | SUR.PHASEII ---
Late entry: Initially in phase 2 pt not ready to go, slightly nauseated, given wen tea per request, ride updated, pt then asked to go at 1500. d/c instructions discussed, pt then left unit in stable condition.
== END 2021-05-08 15:15 | disposition home or self-care (01) ==
PROVIDERS: Family Provider Student in an Organized Health Care Education/Training Program; PCP Nurse Practitioner; Referring Provider Surgery; Visit Provider Surgery
PROC: 0DJD8ZZ Inspection of Lower Intestinal Tract, Via Natural or Artificial Opening Endoscopic (ICD-10-PCS; CPT 45378; principal; 2021-05-08 13:45)
DX: Z12.11 Encounter for screening for malignant neoplasm of colon (principal); K21.9 Gastro-esophageal reflux disease without esophagitis
CPT/HCPCS: G0121; 99152; J2250; J3010

== ENCOUNTER → 2022-05-07 12:26 | Outpatient (CLI) | payer OTHER, SELFPAY ==
[2022-03-12 09:56] VITALS: BMI 29.3
--- NOTE | 2022-05-07 12:27 | DI.US.S_ITS ---
PROCEDURE: US PERIPH VENOUS LOW EXTREM RT INDICATIONS: POSTERIOR KNEE AND THIGH PAIN - please evaluate for DEEP VEIN THROMBOSIS AND GLASS CYST TECHNIQUE: Real-time imaging, as well as color and pulse Doppler interrogation, were performed of the lower extremity deep veins from the inguinal ligament to the popliteal fossa. COMPARISON: None. FINDINGS: The common femoral, femoral and popliteal veins are normally compressible, and free of intraluminal thrombus. Color and pulse Doppler demonstrate normal phasic intraluminal flow. There is normal augmentation response to distal compression maneuver. IMPRESSION: Negative for deep venous thrombosis. Dictated by: Aleksandar Ayon M.D. on 05/07/2022 at 12:14 Approved by: Aleksandar Ayon M.D. on 05/07/2022 at 12:14
== END ==
PROVIDERS: Family Provider Student in an Organized Health Care Education/Training Program; PCP Nurse Practitioner; Referring Provider Nurse Practitioner; Visit Provider Nurse Practitioner
DX: M79.604 Pain in right leg (principal)
CPT/HCPCS: 93971

== ENCOUNTER → 2022-06-11 13:51 | Outpatient (CLI) | payer OTHER, SELFPAY ==
[2022-03-12 09:56] VITALS: BMI 29.3
--- NOTE | 2022-06-11 13:54 | DI.MG.S_ITS ---
BILATERAL DIGITAL SCREENING MAMMOGRAM 3D/2D WITH CAD: 06/11/2022 CLINICAL: Routine screening. Family history of breast cancer. Comparison is made to exams dated: 05/04/2020 mammogram, 10/28/2019 mammogram, 10/15/2019 mammogram, 03/11/2019 mammogram, 02/17/2019 mammogram - [facility], and 08/05/2017 mammogram - [facility]. Both breasts are heterogeneously dense, which may obscure small masses (category c / 51-75% glandular tissue). Current study was also evaluated with a Computer Aided Detection (CAD) system. No significant masses, calcifications, or other findings are seen in either breast. There has been no significant interval change. IMPRESSION: NEGATIVE There is no mammographic evidence of malignancy. A 1 year screening mammogram is recommended. Based on the Tyrer Cuzick model (a risk assessment model) the patient's lifetime risk is 7.9% and her 10 year risk is 5.0%. According to the ACR, ACS, and NCCN guidelines, an annual breast MRI exam along with mammogram is recommended if the patient's lifetime risk is 20% or greater. This exam was interpreted at Station ID: [id number]. NOTE: For mammograms, a report in lay terms will be sent to the patient. Approximately 15% of breast malignancies will not be visualized mammographically. In the management of a palpable breast mass, a negative mammogram must not discourage biopsy of a clinically suspicious lesion. Electronically Signed By: Shukri mahmood/sintia:06/11/2022 14:58:20 copy to: ALBERTINA PARRISH letter sent: Normal Exam ACR BI-RADS Category 1: Negative [id number]
== END ==
PROVIDERS: Family Provider Student in an Organized Health Care Education/Training Program; PCP Nurse Practitioner; Referring Provider Nurse Practitioner; Visit Provider Nurse Practitioner
DX: Z80.3 Family history of malignant neoplasm of breast (principal); Z12.31 Encounter for screening mammogram for malignant neoplasm of breast; Z13.820 Encounter for screening for osteoporosis; M85.851 Other specified disorders of bone density and structure, right thigh; Z78.0 Asymptomatic menopausal state
CPT/HCPCS: 77063; 77067; 77080

== ENCOUNTER → 2022-09-13 08:34 | Outpatient (CLI) | payer OTHER, SELFPAY ==
[2022-03-12 09:56] VITALS: BMI 29.3
[2022-09-13 10:00] LABS: Add Manual Diff / Slide Review NO; Basophils Absolute Auto 0 /uL (0-100); Basophils Percent Auto 0.5 % (0-2); Eosinophils Absolute Auto 100 /uL (0-450); Eosinophils Percent Auto 2.1 % (2-4); Hematocrit 38.6 % (36-46); Hemoglobin 13.1 g/dL (12.0-16.0); Lymphocytes Absolute Auto 2500 /uL (1100-4500); Lymphocytes Percent Auto 46.6 % (25-40); Mean Corpuscular Hemoglobin 31.8 PG (26-34); Mean Corpuscular Volume 93.7 fL (80-100); Monocytes Absolute Auto 400 /uL (0-900); Monocytes Percent Auto 6.7 % (3-14); Neutrophils Absolute Auto 2300 /uL (1500-7000); Neutrophils Percent Auto 44.1 % (50-75); Platelet Count 240 X10^3/uL (150-400); Red Blood Cell Count 4.12 X10^6/uL (4.0-5.2); Red Cell Distribution Width 13.4 % (11.6-14.8); White Blood Cell Count 5.3 X10^3/uL (4.5-11.0)
[2022-09-13 10:12] LABS: Alanine Aminotransferase 15 IU/L (<35); Albumin Globulin Ratio 1.5 (1.0-2.8); Alkaline Phosphatase 89 U/L (38-126); Aspartate Aminotransferase 21 IU/L (14-36); BUN Creatinine Ratio 23.7 (6-22); Bilirubin Total 0.6 mg/dL (0.2-1.3); Blood Urea Nitrogen 14 mg/dL (7-17); Calcium 9.1 mg/dL (8.4-10.2); Carbon Dioxide 30 mmol/L (22-32); Chloride 102 mmol/L (98-107); Cholesterol 207 mg/dL (140-199); Estimated Glomerular Filt Rate > 60 mL/min (>60); Globulin 2.6 g/dL (1.7-4.1); Glucose 95 mg/dL (80-110); HDL Cholesterol 69 mg/dL (40-60); HEMOLYSIS < 15 (0-50); LDL Cholesterol Calculated 117 mg/dL (<100); Magnesium 2.2 mg/dL (1.6-2.3); Potassium 4.1 mmol/L (3.4-5.1); Sodium 138 mmol/L (137-145); Total Protein 6.6 g/dL (6.3-8.2); Triglycerides 106 mg/dL (35-150)
[2022-09-13 10:34] LABS: Free T3, Triiodothyronine Free 3.67 pg/mL (2.77-5.27); Free T4, Direct Thyroxine 0.95 ng/dL (0.78-2.19)
[2022-09-13 10:48] LABS: Thyroid Stimulating Hormone 4.65 uIU/mL (0.47-4.68)
[2022-09-13 11:04] LABS: Hep C Virus Ab w/Reflex Quant NEGATIVE s/c (NEGATIVE)
== END ==
PROVIDERS: Family Provider Student in an Organized Health Care Education/Training Program; PCP Nurse Practitioner; Referring Provider Nurse Practitioner; Visit Provider Nurse Practitioner
DX: D72.829 Elevated white blood cell count, unspecified (principal); R53.83 Other fatigue; R79.9 Abnormal finding of blood chemistry, unspecified; Z11.59 Encounter for screening for other viral diseases; M85.851 Other specified disorders of bone density and structure, right thigh; M85.852 Other specified disorders of bone density and structure, left thigh; R73.01 Impaired fasting glucose; Z13.6 Encounter for screening for cardiovascular disorders; Z79.899 Other long term (current) drug therapy; E83.42 Hypomagnesemia
CPT/HCPCS: 36415; 80053; 80061; 83735; 84439; 84443; 84481; 85025; 86803

== ENCOUNTER → 2022-09-19 09:26 | Outpatient (CLI) | payer OTHER, SELFPAY ==
[2022-03-12 09:56] VITALS: BMI 29.3
[2022-09-20 13:12] LABS: Fecal Immunochemical Test Negative (Negative)
== END ==
PROVIDERS: Family Provider Student in an Organized Health Care Education/Training Program; PCP Nurse Practitioner; Referring Provider Nurse Practitioner; Visit Provider Nurse Practitioner
DX: Z12.11 Encounter for screening for malignant neoplasm of colon (principal)
CPT/HCPCS: 82274

== ENCOUNTER 2022-10-05 10:26 | Observation (INO) | payer OTHER, SELFPAY ==
[2022-03-12 09:56] VITALS: BMI 29.3
[2022-10-05] VITALS (7 sets, daily range): BP systolic 131–192; BP diastolic 61–87; PULSE 64–75; RESP 15–18; TEMP 36.2–36.8; O2SAT 94–100; BMI 27.8
--- NOTE | 2022-10-05 10:55 | PC.NURSE ---
Patient states her red swelling on her wrist and forearm has increased over the past 2 days. Pt states it is more firm to the touch. Redness was marked with a skin marker to observe for increased swelling. She is not sure when her last tetanus shot was, but knows it has not been in the past 5 years.
--- NOTE | 2022-10-05 12:00 | PC.NURSE ---
Patient states she was put on amoxicillin but the wound has not gotten better. Red swelling has spread
--- NOTE | 2022-10-05 12:22 | ED_ITS ---
HPI - Animal Bite General Chief Complaint: Animal Bite Stated Complaint: cat scratch not getting better w/abx Time Seen by Provider: 10/05/22 10:38 Source: patient Mode of arrival: Ambulatory History of Present Illness HPI narrative: 72-year-old female nonsmoker with noncontributory medical history presents for evaluation of worsening pain, redness and swelling of her right forearm. On Saturday she was scratched by her cats hind palm and the following morning was seen by her primary care provider who put her on Augmentin. She is been taking the medications as directed and despite this her symptoms have worsened, the redness is now completely wrapped around her forearm and she has swelling at the site of the puncture. She denies any drainage, no systemic complaints such as fever, chills nor nausea or vomiting. Related Data Home Medications Medication Instructions Recorded Confirmed L.acidoph, paracasei,B. lactis 10 cell PO 07/19/22 08/23/22 billion cell capsule (Digestive Advantage Advanced Probiotic) calcium carbonate 215 mg calcium 650 mg PO BID 07/19/22 08/23/22 (500 mg) chewable tablet (Antacid Calcium) cholecalciferol (vitamin D3) 50 50 mcg PO BID 07/19/22 08/23/22 mcg (2,000 unit) capsule Previous Rx's Medication Instructions Recorded albuterol sulfate 90 mcg/actuation 2 puff inhalation Q4-6H PRN 03/08/22 aerosol inhaler (ProAir HFA) shortness of breath or wheezing #6.7 grams magnesium oxide 500 mg capsule 500 mg PO DAILY #30 caps 07/19/22 amoxicillin 875 mg-potassium 1 tab PO Q12H #20 tabs 10/03/22 clavulanate 125 mg tablet Allergies Allergy/AdvReac Type Severity Reaction Status Date / Time No Known Drug Allergies Allergy Verified 10/05/22 10:28 Review of Systems Review of Systems Narrative: GENERAL: Denies chills, fatigue, malaise, fever, sweats. HEENT: Denies sinus pain, ear pain, sore throat, difficulty swallowing, dizziness. RESPIRATORY: Denies dyspnea, cough, wheezing, hemoptysis, sputum. CARDIOVASCULAR: Denies chest pain, palpitations, orthopnea, edema, GASTROINTESTINAL: Denies nausea, vomiting, abdominal pain, diarrhea, constipation, melena. : Denies dysuria, frequency, incontinence, hematuria, urinary retention. MUSCULOSKELETAL: See HPI SKIN: See HPI NEUROLOGIC: Denies weakness, headache, numbness, change in speech, confusion, seizures, incoordination. PSYCHIATRIC: No concerning psychosocial issues. 12 point review of systems is negative except for those stated above Patient History Medical History Acute appendicitis Chronic cough GERD (gastroesophageal reflux disease) Hearing loss Left breast mass Lower back pain Osteopenia of both hips Surgical History History of breast biopsy History of ear surgery Family History Mother Heart disease Father Heart disease Social History marital status: household members: spouse occupational status: previously employed Smoking Status: Never smoker alcohol intake: current substance use type: does not use Smoking Status: Never smoker alcohol intake frequency: a few times a week Substance Use Type: does not use Exam Narrative Exam Narrative: GENERAL: [72] year old patient appears stated age. Well-developed patient, in mild distress. HEAD: Atraumatic. Normocephalic. EYES: Pupils equal round and reactive. Extraocular motions intact. No scleral icterus. No injection or drainage. ENT: Nose without bleeding, purulent drainage. Throat without erythema, tonsillar hypertrophy or exudate. Airway patent. NECK: Trachea midline. Non tender CARDIOVASCULAR: Regular rate and rhythm without murmurs, gallops, or rubs. RESPIRATORY: Clear to auscultation. Breath sounds equal bilaterally. No wheezes, rales, or rhonchi. GASTROINTESTINAL: Abdomen soft, non-tender, nondistended. EXTREMITIES: Circumferential erythema of right forearm from just proximal to the wrist 2/3 up the forearm, there is a single puncture site on the dorsal aspect of the forearm with induration but no fluctuance, there is no drainage, no obvious lymphangitis. Bedside ultrasound demonstrates no drainable pocket of fluid BACK: Nontender without deformity or crepitance. No flank tenderness. NEURO: AOx3. Initial Vital Signs Initial Vital Signs: Vital Signs Temperature 98.3 F 10/05/22 10:28 Pulse Rate 75 10/05/22 10:28 Respiratory Rate 15 10/05/22 10:28 Blood Pressure 192/76 H 10/05/22 10:28 Pulse Oximetry 94 10/05/22 10:28 Oxygen Delivery Method Room Air 10/05/22 10:28 Course Orders Ordered: ED Orders 10/05/22 10:40 CMP [Comprehensive Metabolic Panel] Stat Complete Blood Count AUTO DIFF Stat Lactate (Lactic Acid) Stat 10/05/22 12:26 Blood Culture Stat 10/05/22 12:29 XR forearm RT 2V Stat Vancomycin HCl/Dextrose (Vancomycin) 1,500 mg in 300 mls @ 200 mls/hr IV NOW O NE Stop: 10/05/22 14:37 Last Admin: 10/05/22 13:30 Dose: 200 mls/hr Documented By: SB Discontinued Medications Diphtheria/Tetanus/Acell Pertussis (Tet,Diph,Pertuss(Acell),Vac/Pf 0.5 Ml Syringe) 0.5 ml IM .ONCE ONE Stop: 10/05/22 12:30 Last Admin: 10/05/22 12:45 Dose: 0.5 ml Documented By: SPF Consultations Consultation #1: Dr. Berg is happy to accept patient on his service Vital Signs Vital signs: Vital Signs - 8 hr 10/05/22 10:28 Temperature 98.3 F Pulse Rate 75 Respiratory Rate 15 Blood Pressure 192/76 H Pulse Oximetry 94 Oxygen Delivery Method Room Air MDM - Animal Bite Lab Data 10/05/22 10:40 10/05/22 10:40 Labs: Lab Results 10/05/22 10/05/22 10/05/22 Range/Units 10:40 10:40 10:40 WBC 7.9 (4.5-11.0) X10^3/uL RBC 4.18 (4.0-5.2) X10^6/uL Hgb 13.4 (12.0-16.0) g/dL Hct 39.4 (36-46) % MCV 94.4 (80-100) fL MCH 32.1 (26-34) PG MCHC 34.0 (30-36) % RDW 13.6 (11.6-14.8) % Plt Count 241 (150-400) X10^3/uL Neut % (Auto) 61.9 (50-75) % Lymph % (Auto) 29.0 (25-40) % [place] % (Auto) 7.6 (3-14) % Eos % (Auto) 1.1 L (2-4) % Baso % (Auto) 0.4 (0-2) % Neut # (Auto) 4900 (2355-5170) /uL Lymph # (Auto) 2300 (1736-3385) /uL [place] # (Auto) 600 (0-900) /uL Eos # (Auto) 100 (0-450) /uL Baso # (Auto) 0 (0-100) /uL Sodium 138 (137-145) mmol/L Potassium 4.5 (3.4-5.1) mmol/L Chloride 102 (98-107) mmol/L Carbon Dioxide 31 (22-32) mmol/L BUN 17 (7-17) mg/dL Creatinine 0.60 (0.52-1.04) mg/dL Estimated GFR > 60 (>60) mL/min BUN/Creatinine Ratio 28.3 H (6-22) Glucose 93 (80-110) mg/dL Lactate 1.0 (0.7-2.1) mmol/L Calcium 9.3 (8.4-10.2) mg/dL Total Bilirubin 0.5 (0.2-1.3) mg/dL AST 21 (14-36) IU/L ALT 16 (<35) IU/L Alkaline Phosphatase 92 (38-126) U/L Total Protein 7.3 (6.3-8.2) g/dL Albumin 4.1 (3.5-5.0) g/dL Globulin 3.2 (1.7-4.1) g/dL Albumin/Globulin Ratio 1.3 (1.0-2.8) MDM Narrative Medical decision making narrative: Otherwise healthy 72-year-old female with worsening cellulitis of the right arm after a cat scratch despite appropriate outpatient antibiotics for the past 3 days. No obvious abscess on bedside ultrasound, no foreign body on x-ray, labs largely reassuring. Patient requires hospitalization for further treatment and stabilization of her condition given her failure to improve with outpatient therapy. Patient understands and agrees with diagnosis and plan Discharge Plan Departure Patient Disposition: Admitted as Observation Clinical Impression: Cellulitis of forearm, right, Failure of outpatient treatment Prescriptions: No Action albuterol sulfate [ProAir HFA] 90 mcg/actuation HFA aerosol inhaler 2 puff inhalation Q4-6H PRN (Reason: shortness of breath or wheezing) Qty: 6.7 0RF amoxicillin-pot clavulanate 875-125 mg tablet 1 tab PO Q12H Qty: 20 0RF Rx Instructions: Take 1 tab by mouth every 12 hours x10 days, call if not resolved cholecalciferol (vitamin D3) 50 mcg (2,000 unit) capsule 50 mcg PO BID Antacid Calcium 215 mg calcium (500 mg) tablet,chewable 650 mg PO BID Digestive Advantage Advanced 10 billion cell capsule PO magnesium oxide 500 mg capsule 500 mg PO DAILY Qty: 30 2RF Referrals: Lindsay Edmondson ARNP [Primary Care Provider] -
[2022-10-05 12:29] LABS: Alanine Aminotransferase 16 IU/L (<35); Albumin 4.1 g/dL (3.5-5.0); Albumin Globulin Ratio 1.3 (1.0-2.8); Alkaline Phosphatase 92 U/L (38-126); Aspartate Aminotransferase 21 IU/L (14-36); BUN Creatinine Ratio 28.3 (6-22); Bilirubin Total 0.5 mg/dL (0.2-1.3); Blood Urea Nitrogen 17 mg/dL (7-17); Calcium 9.3 mg/dL (8.4-10.2); Carbon Dioxide 31 mmol/L (22-32); Chloride 102 mmol/L (98-107); Estimated Glomerular Filt Rate > 60 mL/min (>60); Globulin 3.2 g/dL (1.7-4.1); Glucose 93 mg/dL (80-110); HEMOLYSIS < 15 (0-50); Potassium 4.5 mmol/L (3.4-5.1); Sodium 138 mmol/L (137-145); Total Protein 7.3 g/dL (6.3-8.2)
--- NOTE | 2022-10-05 12:29 | DI.RAD.S_ITS ---
PROCEDURE: XR FOREARM RT 2V INDICATIONS: worsening cellulitis, cat scratch, foreign body? TECHNIQUE: 2 views of the forearm were acquired. COMPARISON: None. FINDINGS: Bones: No acute fractures or dislocations. No suspicious bony lesions. Degenerative changes are noted that are most prominent at the 1st carpometacarpal joint. Soft tissues: No suspicious soft tissue calcifications or masses. Nonspecific soft tissue edema is seen in the distal forearm. No radiopaque foreign body. IMPRESSION: Nonspecific soft tissue edema in the distal forearm. No radiopaque foreign body. No acute osseous abnormality. Approved by: Lamine Frank M.D. on 10/05/2022 at 13:15
[2022-10-05 12:31] LABS: Add Manual Diff / Slide Review NO; Basophils Absolute Auto 0 /uL (0-100); Basophils Percent Auto 0.4 % (0-2); Eosinophils Absolute Auto 100 /uL (0-450); Eosinophils Percent Auto 1.1 % (2-4); Hematocrit 39.4 % (36-46); Hemoglobin 13.4 g/dL (12.0-16.0); Lymphocytes Absolute Auto 2300 /uL (1100-4500); Mean Corpuscular Hemoglobin 32.1 PG (26-34); Mean Corpuscular Volume 94.4 fL (80-100); Monocytes Absolute Auto 600 /uL (0-900); Monocytes Percent Auto 7.6 % (3-14); Neutrophils Absolute Auto 4900 /uL (1500-7000); Neutrophils Percent Auto 61.9 % (50-75); Platelet Count 241 X10^3/uL (150-400); Red Blood Cell Count 4.18 X10^6/uL (4.0-5.2); Red Cell Distribution Width 13.6 % (11.6-14.8); White Blood Cell Count 7.9 X10^3/uL (4.5-11.0)
[2022-10-05] MEDS: TET,DIPH,PERTUSS(ACELL),VAC/PF 0.5 ML SYRINGE IM (12:45)
[2022-10-05] MEDS: VANCOMYCIN 1,500 MG/300 ML PIGGYBACK 200 MG IV (13:30)
--- NOTE | 2022-10-05 14:54 | PC.NURSE ---
Pt arrived from ED at approximately 1415 this afternoon A&OX4, VSS, afebrile on RA. R FA with redness and erythema surrounding puncture wound. DANYELL She reports arm is tender. No drainage noted. IV vancomycin 1.5 g running currently. at bedside supportive. Continuous monitoring. MD at bedside this afternoon.
--- NOTE | 2022-10-05 15:04 | P.HP_ITS ---
History of Present Illness History of Present Illness Chief complaint: cat scratch not getting better w/abx Narrative: Pt is 72 yo female with history of osteopnia presented with c/o worsening right forearm redness, pain and swelling. Reports getting scratched by her cat 3 days ago. Then 2 days ago saw PCP for right arm redness and got started on Augmentin. Came in to ED due to worsening symptoms related to rt arm cellulitis. Denies fever or chills or wound drainage. Admitted to OBS service due to failure of outpatient abx. [facility] Medical History Acute appendicitis Chronic cough GERD (gastroesophageal reflux disease) Hearing loss Left breast mass Lower back pain Osteopenia of both hips Surgical History History of breast biopsy History of ear surgery Family History Mother Heart disease Father Heart disease Social History marital status: household members: spouse occupational status: previously employed Smoking Status: Never smoker alcohol intake: current substance use type: does not use Meds Home Medications and Allergies Home Medications Medication Instructions Recorded Confirmed Type albuterol sulfate 90 mcg/actuation 2 puff inhalation Q4-6H PRN 03/08/22 08/23/22 Rx aerosol inhaler (ProAir HFA) shortness of breath or wheezing #6.7 grams L.acidoph, paracasei,B. lactis 10 cell PO 07/19/22 08/23/22 History billion cell capsule (Digestive Advantage Advanced Probiotic) calcium carbonate 215 mg calcium 650 mg PO BID 07/19/22 08/23/22 History (500 mg) chewable tablet (Antacid Calcium) cholecalciferol (vitamin D3) 50 50 mcg PO BID 07/19/22 08/23/22 History mcg (2,000 unit) capsule magnesium oxide 500 mg capsule 500 mg PO DAILY #30 caps 07/19/22 08/23/22 Rx amoxicillin 875 mg-potassium 1 tab PO Q12H #20 tabs 10/03/22 10/03/22 Rx clavulanate 125 mg tablet Allergies Allergy/AdvReac Type Severity Reaction Status Date / Time No Known Drug Allergies Allergy Verified 10/05/22 10:28 Exam Vital Signs (past 8 hours): - 10/05/22 10:28 10/05/22 13:06 10/05/22 13:06 Temperature 98.3 F Pulse Rate 75 68 Respiratory Rate 15 Blood Pressure 192/76 H 167/80 H Pulse Oximetry 94 99 Oxygen Delivery Method Room Air 10/05/22 13:30 10/05/22 13:30 10/05/22 13:38 Temperature Pulse Rate 73 Respiratory Rate Blood Pressure 163/87 H 171/74 H Pulse Oximetry 99 Oxygen Delivery Method 10/05/22 13:38 10/05/22 14:00 10/05/22 14:00 Temperature Pulse Rate 69 64 Respiratory Rate Blood Pressure 160/72 H Pulse Oximetry 100 99 Oxygen Delivery Method Room Air Oxygen Delivery Method Room Air Narrative Exam Narrative: Gen: alert, WD/WN female, cooperative, NAD HEENT: NC/AT neck: no lymphadenopathy Lungs: clear CV: reular rate and rhythm, no murmur Abd: soft, nt RUE_ rt distal forearm excoriation with surrounding redness and edema, no wound drainage, no wrist joint or finger swelling, full ROM in finger tendons LE: no edema Neuro: nl speech and affect Objective Labs 10/05/22 10:40 10/05/22 10:40 Labs: Laboratory Results - last 24 hr 10/05/22 10/05/22 10/05/22 10:40 10:40 10:40 WBC 7.9 RBC 4.18 Hgb 13.4 Hct 39.4 MCV 94.4 MCH 32.1 MCHC 34.0 RDW 13.6 Plt Count 241 Neut % (Auto) 61.9 Lymph % (Auto) 29.0 [place] % (Auto) 7.6 Eos % (Auto) 1.1 L Baso % (Auto) 0.4 Neut # (Auto) 4900 Lymph # (Auto) 2300 [place] # (Auto) 600 Eos # (Auto) 100 Baso # (Auto) 0 Sodium 138 Potassium 4.5 Chloride 102 Carbon Dioxide 31 BUN 17 Creatinine 0.60 Estimated GFR > 60 BUN/Creatinine Ratio 28.3 H Glucose 93 Lactate 1.0 Calcium 9.3 Total Bilirubin 0.5 AST 21 ALT 16 Alkaline Phosphatase 92 Total Protein 7.3 Albumin 4.1 Globulin 3.2 Albumin/Globulin Ratio 1.3 Assessment & Plan Assessment & Plan narrative: 1. RUE forearm cellulitis secondary to cat scratch -rec'd tdap and Vancomycin in ED -failure of outpt Augmentin -check nasal MRSA, if MRSA + cont Vancomycin, if MRSA - switch to cefazolin Admit status: Obs DVT prophylaxis: low risk Surrogate decision maker: spouse
--- NOTE | 2022-10-05 15:10 | PC.NURSE ---
Addendum entered by Niecy Hannon R.N. 10/05/22 15:12: cat bite wound pictures Original Note:
[2022-10-05 17:11] LABS: MRSA (Nasal) PCR Not Detected (Not Detect)
[2022-10-06] VITALS: BP 132/57; PULSE 63; RESP 18; TEMP 36.5; O2SAT 95
[2022-10-06 04:23] VITALS: BP 131/62; PULSE 65; RESP 16; TEMP 36.3; O2SAT 96
[2022-10-06 08:00] VITALS: BP 129/55; PULSE 66; RESP 18; TEMP 36.1; O2SAT 98
[2022-10-06] MEDS: IBUPROFEN 400 MG TABLET PO ×2 (08:29→20:10)
[2022-10-06] MEDS: ACETAMINOPHEN 325 MG TABLET 650 MG PO ×2 (08:29→20:10)
[2022-10-06] MEDS: SODIUM CHLORIDE 0.9% 250 ML 21 ML IV (08:44)
[2022-10-06] MEDS: cefTRIAXone 2,000 MG in SODIUM CHLORIDE 0.9% 100 ML 200 MG IV (10:21)
--- NOTE | 2022-10-06 11:06 | CM.DANOTE ---
DCP/Assessment: Reviewed chart. Patient is a 72yr old female admitted under OBS to [facility] after cat scratch. PCP is Lindsay Edmondson. Primary payor is 1)[facility] 2)Self pay. ESTATE AGENT met with patient and spouse/Shaun at bedside explained CM team role. Patient ambulating in room independently at time of visit. Patient does not anticipate any d/c planning needs. Patient reports being completely I with all ADL's. Dr. Johnson indicates that patient might d/c home today on oral abx. No d/c planning needs identified. RN updated. P: Home when stable. [facility] Discharge Planning/Care Management CM Discharge Assessment Start: 10/06/22 11:02 Freq: Status: Active Protocol: Document 10/06/22 11:03 [facility] (Rec: 10/06/22 11:06 [facility] [id number]) Discharge Planning Assessment Assigned Open Soaper Tender OCTAVIO Zheng Contact Information Shaun Camacho (spouse) ph# [phone] Advance Directives? No History Provided By Patient,Significant Other, Medical Record Prior Living Arrangements House Household Members spouse Type of transporation used prior to Drives own vehicle admit Independent with ADL's Yes Is patient alert and oriented? Yes Caregiver for Another No Barriers to Discharge No Discharge Plan Home Transportation Arrangement Spouse to provide transport. Referrals Initiated None needed Whiteboard Updated in Patient Room with Yes name and ext. # of Open Soaper Tender Review Status In Process Next Review Type Continued Stay Review
[2022-10-06 12:00] VITALS: BP 119/53; PULSE 66; RESP 18; TEMP 36.6; O2SAT 97
--- NOTE | 2022-10-06 15:44 | PM.PN.1 ---
Subjective Subjective Interval history: Patient notes the redness has decreased, swelling not as much. Pain has improved in R forearm. Exam Vital Signs (past 8 hours): - 10/06/22 08:00 10/06/22 12:00 Temperature 97 F L 98 F Pulse Rate 66 66 Respiratory Rate 18 18 Blood Pressure 129/55 L 119/53 L Pulse Oximetry 98 97 Oxygen Flow Rate 0 0 Oxygen Delivery Method Room Air Oxygen Flow Rate 0 Narrative Exam Narrative: Gen: alert, WD/WN female, cooperative, NAD HEENT: NC/AT neck: no lymphadenopathy Lungs: clear CV: reular rate and rhythm, no murmur Abd: soft, nt RUE: Rt distal forearm excoriation with surrounding swelling and redness which has improved, no wound drainage, no wrist joint or finger swelling, full ROM in finger tendons LE: no edema Neuro: nl speech and affect Objective Labs 10/05/22 10:40 10/05/22 10:40 Labs: Laboratory Results - last 24 hr 10/05/22 15:30 Nasal Screen MRSA (PCR) Not detected PFSH Medical History Acute appendicitis Chronic cough GERD (gastroesophageal reflux disease) Hearing loss Left breast mass Lower back pain Osteopenia of both hips Surgical History History of breast biopsy History of ear surgery Family History Mother Heart disease Father Heart disease Social History marital status: household members: spouse occupational status: previously employed Smoking Status: Never smoker alcohol intake: current substance use type: does not use Assessment & Plan Assessment & Plan narrative: 1. RUE forearm cellulitis secondary to cat scratch -failure of outpt Augmentin -MRSA negative so Vanc stopped -continue rocephin and will dc on 10/07 on oral abx Admit status: Obs DVT prophylaxis: low risk Surrogate decision maker: spouse
[2022-10-06 16:00] VITALS: BP 131/64; PULSE 67; RESP 20; TEMP 36.6; O2SAT 100
--- NOTE | 2022-10-06 17:24 | DI.US.S_ITS ---
PROCEDURE: US EXTREMELY NONVASC UPPER RT INDICATIONS: ASSESS FOR ABSCESS OF RIGHT FOREARM TECHNIQUE: Real-time scanning was performed of the right forearm, with image documentation. COMPARISON: None. FINDINGS: Diffuse soft tissue edema noted without evidence of organized abscess. Muscles and fascial planes maintained IMPRESSION: Soft tissue edema without abscess Approved by: Scott Bellamy M.D. on 10/06/2022 at 18:27
[2022-10-06 20:20] VITALS: BP 132/50; PULSE 73; RESP 18; TEMP 36.4; O2SAT 98
[2022-10-07 00:40] VITALS: BP 126/55; PULSE 70; RESP 18; TEMP 36.6; O2SAT 95
[2022-10-07 05:10] VITALS: BP 117/55; PULSE 61; RESP 18; TEMP 36.7; O2SAT 95
--- NOTE | 2022-10-07 07:32 | P.DS_ITS ---
History of Present Illness History of Present Illness Chief complaint: cat scratch not getting better w/abx Narrative: Pt is 72 yo female with history of osteopenia presented with c/o worsening right forearm redness, pain and swelling. Reports getting scratched by her cat 3 days ago. Then 2 days ago saw PCP for right arm redness and got started on Augmentin. Came in to ED due to worsening symptoms related to rt arm cellulitis. Denies fever or chills or wound drainage. Admitted to OBS service due to failure of outpatient abx. Discharge Providers Provider Date of admission: 10/05/22 13:42 Discharge Date: 10/07/22 Primary care physician: ANGIE Prince Consults: 10/05/22 14:31 Consult to Dietitian, Adult Routine Comment: Reason For Exam: weight loss (16 pounds) Discharge provider: Anthony Johnson DO Summary Hospital Course Discharge Diagnosis: 1. RUE forearm cellulitis secondary to cat scratch -failure of outpt Augmentin -no evidence of abscess on soft tissue US -MRSA negative so Vanc stopped -continue rocephin and will dc on 10/07 on oral abx Hospital Course: Admitted for worsening cellulitis of R forearm after cat scratch. Improved with IV abx and discharged on 3 more days of po cefadroxil. Time Spent with Patient Time spent: Greater than 30 minutes Exam Vital Signs (past 8 hours): - 10/07/22 00:40 10/07/22 05:10 Temperature 97.8 F 98.1 F Pulse Rate 70 61 Respiratory Rate 18 18 Blood Pressure 126/55 L 117/55 L Pulse Oximetry 95 95 Oxygen Flow Rate 0 0 Oxygen Delivery Method Room Air Oxygen Flow Rate 0 Narrative Exam Narrative: Gen: alert, WD/WN female, cooperative, NAD HEENT: NC/AT neck: no lymphadenopathy Lungs: clear CV: reular rate and rhythm, no murmur Abd: soft, nt RUE: Rt distal forearm excoriation with surrounding swelling and redness which has improved, no wound drainage, no wrist joint or finger swelling, full ROM in finger tendons LE: no edema Neuro: nl speech and affect Objective Labs 10/05/22 10:40 10/05/22 10:40 [facility] Medical History Acute appendicitis Chronic cough GERD (gastroesophageal reflux disease) Hearing loss Left breast mass Lower back pain Osteopenia of both hips Surgical History History of breast biopsy History of ear surgery Family History Mother Heart disease Father Heart disease Social History marital status: household members: spouse occupational status: previously employed Smoking Status: Never smoker alcohol intake: current substance use type: does not use Discharge Plan Discharge Plan Patient Disposition: Home Provider Discharge Comment: You were admitted for a worsening skin infection from a cat scratch. You received IV antibiotics while in the hospital and your infection improved. You will now need to finish a course of oral antibiotics at home. Discharge orders & Medications Prescriptions: New cefadroxil 500 mg capsule 500 mg PO BID 3 Days Qty: 6 0RF Continued albuterol sulfate [ProAir HFA] 90 mcg/actuation HFA aerosol inhaler 2 puff inhalation Q4-6H PRN (Reason: shortness of breath or wheezing) Qty: 6.7 0RF cholecalciferol (vitamin D3) 50 mcg (2,000 unit) capsule 50 mcg PO BID Antacid Calcium 215 mg calcium (500 mg) tablet,chewable 650 mg PO BID Digestive Advantage Advanced 10 billion cell capsule 1 cell PO DAILY magnesium oxide 500 mg capsule 500 mg PO DAILY Qty: 30 2RF Discontinued amoxicillin-pot clavulanate 875-125 mg tablet 1 tab PO Q12H Qty: 20 0RF Rx Instructions: Take 1 tab by mouth every 12 hours x10 days, call if not resolved Follow up/Referrals: Lindsay Edmondson ARNP [Primary Care Provider] - 2 Weeks Visit Report/Discharge Packet Stand Alone Forms: Patient Portal/API, Stroke Signs & Symptoms Discharge Data Primary Care Provider: Lindsay Edmondson Attending Provider: Quentin Berg Admit Date/Time: 10/05/22 13:42
[2022-10-07 08:00] VITALS: BP 158/62; PULSE 76; RESP 18; TEMP 36.6; O2SAT 98
[2022-10-07] MEDS: cefTRIAXone 1,000 MG in SODIUM CHLORIDE 0.9% 100 ML 200 MG IV (08:39)
--- NOTE | 2022-10-24 19:32 | PC.NURSE ---
Late Entry: Ceftriaxone infusion initiated 10/07 at 0836 complete at 0907.
== END 2022-10-07 10:20 | disposition home or self-care (01) ==
LOC: ED 13:42 → AC 13:43
PROVIDERS: Admitting Provider Internal Medicine; Emergency Provider Emergency Medicine; Family Provider Student in an Organized Health Care Education/Training Program; PCP Nurse Practitioner; Referring Provider Emergency Medicine; Visit Provider Internal Medicine
DX: L03.113 Cellulitis of right upper limb (principal); W55.03XA Scratched by cat, initial encounter
CPT/HCPCS: 36415; 73090; 76882; 80053; 83605; 85025; 87040; 87797; 90471; 96365; 96366; 96367; 99284; G0378; 90715; J0696

== ENCOUNTER → 2023-07-19 12:57 | Outpatient (CLI) | payer OTHER, SELFPAY ==
[2022-10-05 14:27] VITALS: BMI 27.8
--- NOTE | 2023-07-19 12:59 | DI.MG.S_ITS ---
BILATERAL DIGITAL SCREENING MAMMOGRAM 3D/2D WITH CAD: 07/19/2023 CLINICAL: Routine screening. Family history of breast cancer. Comparison is made to exams dated: 06/11/2022 mammogram, 05/04/2020 mammogram, 02/17/2019 mammogram - [facility], and 08/05/2017 mammogram - [facility]. There are scattered areas of fibroglandular density in both breasts (category b / 25%-50% glandular tissue). Current study was also evaluated with a Computer Aided Detection (CAD) system. No significant masses, calcifications, or other findings are seen in either breast. There has been no significant interval change. IMPRESSION: NEGATIVE There is no mammographic evidence of malignancy. A 1 year screening mammogram is recommended. Based on the Tyrer Cuzick model (a risk assessment model) the patient's lifetime risk is 5.0% and her 10 year risk is 3.4%. According to the ACR, ACS, and NCCN guidelines, an annual breast MRI exam along with mammogram is recommended if the patient's lifetime risk is 20% or greater. This exam was interpreted at Station ID: [id number]. NOTE: For mammograms, a report in lay terms will be sent to the patient. Approximately 15% of breast malignancies will not be visualized mammographically. In the management of a palpable breast mass, a negative mammogram must not discourage biopsy of a clinically suspicious lesion. Electronically Signed By: Mony stoner/sintia:07/19/2023 16:32:08 copy to: ALBERTINA PARRISH letter sent: Normal Exam ACR BI-RADS Category 1: Negative [id number]
== END ==
PROVIDERS: Family Provider Student in an Organized Health Care Education/Training Program; PCP Nurse Practitioner; Referring Provider Nurse Practitioner; Visit Provider Nurse Practitioner
DX: Z12.31 Encounter for screening mammogram for malignant neoplasm of breast (principal); R92.323 Mammographic fibroglandular density, bilateral breasts
CPT/HCPCS: 77063; 77067

== ENCOUNTER → 2024-09-07 14:14 | Outpatient (CLI) | payer OTHER, SELFPAY ==
[2022-10-05 14:27] VITALS: BMI 27.8
--- NOTE | 2024-09-07 14:16 | DI.MG.S_ITS ---
MM screening mammo BI: 09/07/2024. BI-RADS: 2 CLINICAL: 74-year old female for bilateral screening mammogram. Tyrer-Cuzick lifetime risk of 5.8%. No personal or first-degree family history of breast cancer. PRIOR EXAMS 07/19/2023, 06/11/2022, 05/04/2020, 10/28/2019, 10/15/2019, 03/11/2019, 02/17/2019. MAMMOGRAPHY TECHNIQUE: 2D and 3D (tomosynthesis) digital mammographic views obtained, with additional images as needed for full coverage. Current study was also evaluated with a Computer Aided Detection (CAD) system. DENSITY C. The breasts are heterogeneously dense, which may obscure small masses. MAMMOGRAPHY FINDINGS Right: No suspicious mass, asymmetry, microcalcification, or other abnormality seen. Left: Biopsy marker present on the left. There are no suspicious masses, calcifications, or other findings in the breast. IMPRESSION: Right * No evidence of malignancy. Left * No evidence of malignancy with benign findings. RECOMMENDATIONS Bilateral * Annual screening mammography. OVERALL ASSESSMENT CATEGORY BI-RADS-2: Benign. The [employer] recommends annual screening mammography beginning at age 40 for women with average risk of breast cancer. ELECTRONICALLY SIGNED: Shukri Delgadillo M.D. on 09/07/2024 at 04:09:55 PM PT Interpreting Station ID: [id number]
--- NOTE | 2024-09-07 14:16 | DI.RAD.S_ITS ---
PROCEDURE: XR DEXA AXIAL SKELETON INDICATIONS: Personal hx of osteopenia COMPARISON: [facility], [place], XR DEXA AXIAL SKELETON, 06/11/2022, 14:31. FINDINGS: Lumbar Spine: Bone mineral density 1.053 (previously 0.987) g/cm2, T score 0.1 (previously -0.5). Left Femoral Neck: Bone mineral density 0.711 (previously 0.647) g/cm2, T score -1.2 (previously -1.8). Left Hip: Bone mineral density 0.863 (previously 0.840) g/cm2, T score -0.6 (previously -0.8). Right Femoral Neck: Bone mineral density 0.603 (previously 0.606) g/cm2, T score -2.2 (previously -2.2). Right Hip: Bone mineral density 0.822 (previously 0.821) g/cm2, T score -1.0 (previously -1.0). Fracture Risk Calculation (when applicable): 10-year fracture risk of a major osteoporotic fracture 13 percent and of a hip fracture 2.9 percent. (T score greater or equal to -1.0 to: NORMAL) (T score from -1.1 to -2.4: OSTEOPENIA) (T score less than or equal to -2.5: OSTEOPOROSIS) IMPRESSION: Osteopenia--- recommend repeat DEXA in 2-3 years for reassessment. Follow-up guidelines as follows: Osteoporosis: Consider a repeat DEXA and Vertebral Fracture Assessment (VFA) exam in 2 years or sooner if medically necessary, to reassess this patient's status. Osteopenia: Consider a repeat DEXA in 2-3 years to reassess this patient's status, or if there is a new clinical indication. Normal: Consider a repeat DEXA in 5 years or sooner, or if there is a new clinical indication. All treatment decisions require clinical judgment and consideration of individual patient factors, including patient preferences, comorbidities, previous drug use, risk factors not captured in the FRAX model (e.g., frailty, falls, vitamin D deficiency, increased bone turnover, interval significant decline in bone density ) and possible under- or over-estimation of fracture risk by FRAX. In addition, the NOF Guide recommends that FDA-approved medical therapies be considered in postmenopausal women and men age >= 50 years with a: * Hip or vertebral (clinical or morphometric) fracture * T-score of <=-2.5 at the spine or hip * Ten-year fracture probability by FRAX of >= 3% for hip fracture or >=20% for major osteoporotic fracture. Dictated by: Rigo Shabazz M.D. on 09/08/2024 at 19:56 Approved by: Rigo Shabazz M.D. on 09/08/2024 at 20:01
== END ==
LOC: MAMMO 14:15
PROVIDERS: Family Provider Student in an Organized Health Care Education/Training Program; PCP Student in an Organized Health Care Education/Training Program; Referring Provider Student in an Organized Health Care Education/Training Program; Visit Provider Student in an Organized Health Care Education/Training Program
DX: Z12.31 Encounter for screening mammogram for malignant neoplasm of breast (principal); M85.89 Other specified disorders of bone density and structure, multiple sites; R92.333 Mammographic heterogeneous density, bilateral breasts
CPT/HCPCS: 77063; 77067; 77080